=== PATIENT | female | born 1950 | race Two or more races ===

== ENCOUNTER 2024-05-17 08:54 | Outpatient (REF) | payer OTHER, SELFPAY ==
[2024-05-17 09:52] LABS: MANUAL DIFF FLAG NO
[2024-05-17 10:36] LABS: Basophils Percent Auto 0.9 % (0-2); Eosinophils Absolute Auto 0.1 X10*3/uL (0.0-0.4); Eosinophils Percent Auto 2.8 % (0-4); Hematocrit 42.8 % (37.0-47.0); Hemoglobin 14.3 g/dl (12.0-16.0); Imm Gran Abs Auto 0.01 X10*3/uL (0.00-0.03); Imm Gran Pct Auto 0.2 % (0.0-0.4); Lymphocytes Absolute Auto 1.1 X10*3/uL (1.2-4.9); Lymphocytes Percent Auto 24.5 % (20-40); Mean Corpuscular HGB Conc 33.4 g/dl (31.0-35.0); Mean Corpuscular Hemoglobin 30.6 pg (27.0-33.0); Mean Corpuscular Volume 91.5 fL (80.0-98.0); Monocytes Absolute Auto 0.4 X10*3/uL (0.1-1.2); Monocytes Percent Auto 9.6 % (2-11); Neutrophils Absolute Auto 2.8 x10*3/uL (2.0-8.3); Platelet Count 282 X10*3/uL (160-400); Red Blood Count 4.68 X10*6/uL (4.20-5.50); Red Cell Distribution Width 11.9 % (11.0-16.0); White Blood Count 4.6 X10*3/uL (4.8-10.8)
[2024-05-17 10:42] LABS: Estimated Average Glucose 123 mg/dL; Hemoglobin A1c % 5.9 % (<6.0)
[2024-05-17 11:07] LABS: Parathyroid Hormone Intact 56.1 pg/mL (8.7-77.1)
[2024-05-17 11:08] LABS: Cholesterol 250 mg/dL (<200); HDL Cholesterol 56 mg/dL (>40); LDL Cholesterol Calculated 159 mg/dL (<100); Triglycerides 176 mg/dL (<150)
[2024-05-17 11:25] LABS: TSH reflex Free T4 3.81 uIU/mL (0.32-4.0); Vitamin D 25-OH Total 34.4 ng/mL (>30)
[2024-05-17 11:36] LABS: Folate 14.3 ng/mL (> or = 4.0); Vitamin B12 536 pg/mL (200-900)
== END 2024-05-17 08:55 | disposition home or self-care (01) ==
LOC: HO.LAB 08:54
PROVIDERS: PCP Nurse Practitioner Family; Visit Provider Nurse Practitioner Family
DX: G62.9 Polyneuropathy, unspecified (principal); E78.2 Mixed hyperlipidemia; M81.0 Age-related osteoporosis without current pathological fracture; I10 Essential (primary) hypertension; R14.0 Abdominal distension (gaseous); Z13.1 Encounter for screening for diabetes mellitus
CPT/HCPCS: 36415; 80061; 82306; 82607; 82746; 83036; 83970; 84443; 85025; 87338

== ENCOUNTER 2024-05-20 15:31 | Outpatient (REF) | payer OTHER, SELFPAY ==
[2024-05-20 17:18] LABS: Alanine Aminotransferase 26 U/L (0-31); Albumin Level 4.3 g/dL (3.5-5.0); Alkaline Phosphatase 85 U/L (39-117); Anion Gap 11 (12-20); Aspartate Amino Transferase 24 U/L (5-31); Bilirubin Total 0.5 mg/dL (0.0-1.0); Blood Urea Nitrogen 12 mg/dL (9-16); Calcium 9.9 mg/dL (8.4-10.2); Carbon Dioxide 30 mmol/L (22-29); Chloride 104 mmol/L (96-108); Estimated Glomerular Filt Rate > 60; Glucose Random 74 mg/dL (60-115); Potassium 4.5 mmol/L (3.3-5.1); Sodium 140 mmol/L (135-145); Total Protein 7.6 g/dL (6.5-8.0)
[2024-05-23 10:48] LABS: TS Negative Control Passed; TS Panel A 0; TS Panel B 0; TS Positive Control Passed; TSpotTB Negative (Negative)
== END 2024-05-20 15:32 | disposition home or self-care (01) ==
LOC: HO.HHCL 15:31
PROVIDERS: Visit Provider Nurse Practitioner Family
DX: Z00.00 Encounter for general adult medical examination without abnormal findings (principal); E78.2 Mixed hyperlipidemia
CPT/HCPCS: 36415; 80053; 86481

== ENCOUNTER 2024-07-15 11:06 | Outpatient (AMB) | payer OTHER, SELFPAY ==
--- NOTE | 2024-07-15 11:08 | MHC.OFFVIS ---
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 Patient has bilateral VV. Bilateral cramping. Has burning and itching in the legs and feet. Accompanied by: Self / Same As Patient Allergies Unable to Assess Allergy (Unverified 07/15/24 11:12) HPI HPI CHIEF SOLUTION ARCHITECT/HHC referral for : Details: Mendy Andrade, a pleasant 74-year-old female, presenting today for ongoing bilateral leg pain, cramping, and slight swelling in her ankles. She does have a lengthy history of low back pain with sciatica and osteoporosis of bilateral hips. It has been affecting their daily activities including standing, walking, everyday activities. It is noted equally bilaterally. She is a former smoker and no diabetes. She quit smoking in 1995. 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 Patient denies any previous venous surgery or injections. Patient denies any history of DVT/ PE. Patient denies any history of phlebitis. Trial of compression includes - elevation They now present for vascular evaluation regarding their varicose veins. Physical Exam Extrem Other: Bilateral lower extremities: Slight swelling noted at the ankles. Strong and palpable DP pulses. Some spider veins scattered in the upper thigh areas. No tortuosity is noted. CEAP: C - 3 E - primary A- superficial P - reflux Assessment & Plan Assessment & Plan (1) Varicose veins of both lower extremities with inflammation: Code(s): I83.11 - Varicose veins of right lower extremity with inflammation; I83.12 - Varicose veins of left lower extremity with inflammation Category: Medical Plan: Mendy Andrade is presenting today as a referral for ongoing varicose vein complaints, including pain and swelling. In short, the patient has evidence of venous insufficiency. I have discussed the pathophysiology with the patient. In addition I have provided informational material regarding venous disease to the patient. We have discussed conservative measures including compression, elevation, and exercise. I have also provided a handout regarding appropriate use of compression stockings and where to purchase good compression stockings as well. I have taken the liberty of ordering venous insufficiency testing with the patient. They will follow up with me after testing. The patient had an opportunity to ask questions regarding the treatment plan. All questions were answered. Imaging studies, laboratory studies and physical exam results were discussed and reviewed in detail. No major barriers to understanding were identified. The patient expressed understanding and agreement with the above treatment plan. The patient is aware they should contact our office by phone for worsening of the current condition or the appearance of new symptoms. Thank you for allowing me to participate in the vascular care of this patient. If you have any questions or concerns regarding the treatment for the above condition please do not hesitate to contact me. The office telephone contact is [phone]. This note is constructed using voice recognition software. While every effort has been made to ensure accuracy, pasting inspector errors may have been included. Thank you for allowing me to participate in the care of your patient. Yours sincerely, SUSAN Urena Orders: Orders US venous duplex LE BI 1 Week I83.11 - Varicose veins of right lower extremity with inflammation, I83.12 - Varicose veins of left lower extremity with inflammation Coding Level of Care Code New Pt New Pt Level 4 (83427) Patient Type New Diagnoses Varicose veins of both lower extremities with inflammation I83.11; I83.12
== END 2024-07-15 11:31 | disposition home or self-care (01) ==
LOC: HO.HVS 11:07
PROVIDERS: PCP Nurse Practitioner Family; Visit Provider Physician Assistant Surgical
DX: I83.11 Varicose veins of right lower extremity with inflammation (principal); I83.12 Varicose veins of left lower extremity with inflammation
CPT/HCPCS: 99204

== ENCOUNTER → 2024-07-15 11:06 | Outpatient (BNVA) | payer OTHER, SELFPAY | PROVIDERS: PCP Nurse Practitioner Family; Visit Provider Physician Assistant Surgical | DX: I83.11 Varicose veins of right lower extremity with inflammation (principal); I83.12 Varicose veins of left lower extremity with inflammation; I83.813 Varicose veins of bilateral lower extremities with pain; Z87.891 Personal history of nicotine dependence | CPT/HCPCS: 99202 ==

== ENCOUNTER 2024-07-31 12:29 | Outpatient (REF) | payer OTHER, SELFPAY ==
--- NOTE | ~2024-07-31 | US_ITS ---
EXAMINATION: US LOWER EXTREMITY VENOUS (REFLUX EXAM), BILATERAL CLINICAL INDICATION: There) of the right lower extremity with inflammation COMPARISON: None. TECHNIQUE: Color flow triplex imaging and compression Doppler was performed to evaluate both the deep and the superficial systems bilaterally. To evaluate the superficial system, the examination was performed in the upright position. Color-flow Doppler ultrasound and compression ultrasound were utilized. In addition, maneuvers were utilized to demonstrate reflux. FINDINGS: 1. DEEP VENOUS ULTRASOUND OF THE RIGHT LOWER EXTREMITY: Common Femoral Vein: Compressible, normal respiratory variation and augmented flow. Femoral Vein: Compressible, normal color flow and augmentation. Popliteal Vein: Compressible, normal augmentation. Deep Reflux: There is no evidence of reflux in the deep system in either the common femoral vein, superficial femoral or the popliteal vein. There is no evidence of a So's cyst. 2. SUPERFICIAL ULTRASOUND WITH DOPPLER OF RIGHT LOWER EXTREMITY: GREAT SAPHENOUS VEIN: Saphenofemoral Junction: 0.5 cm; Reflux: 0 ms Proximal Thigh: 0.4 cm; Reflux: 0 ms Mid Thigh: 0.3 cm; Reflux: 0 ms Above Knee: 0.3 cm; Reflux: 0 ms At Knee: 0.3 cm; Reflux: 0 ms Below Knee: 0.2 cm; Reflux: 0 ms Mid Calf: 0.2 cm; Reflux: 0 ms Ankle: 0.2 cm; Reflux: 0 ms DUPLICATED MEDIAL GREAT SAPHENOUS VEIN: Saphenofemoral Junction: 0.3 cm; Reflux: 0 ms Mid Thigh: Not visualized DUPLICATED LATERAL GREAT SAPHENOUS VEIN: Saphenofemoral Junction: 0.3 cm; Reflux: 0 ms Mid Thigh: 0.2 cm; Reflux: 0 ms SMALL SAPHENOUS VEIN: Saphenopopliteal Junction: 0.4 cm; Reflux: 0 ms Proximal: 0.2 cm; Reflux: 0 ms Distal: 0.2 cm; Reflux: 0 ms PERFORATORS: Location: Mid thigh Size: 0.2; Reflux: 0 ms VARICOSITIES: Location: None imaged Size: NA; Reflux: 0 ms 3. DEEP VENOUS ULTRASOUND OF THE LEFT LOWER EXTREMITY: Common Femoral Vein: Compressible, normal respiratory variation and augmented flow. Femoral Vein: Compressible, normal color flow and augmentation. Popliteal Vein: Compressible, normal augmentation. Deep Reflux: There is no evidence of reflux in the deep system in either the common femoral vein, superficial femoral or the popliteal vein. There is no evidence of a So's cyst. 4. SUPERFICIAL ULTRASOUND WITH DOPPLER OF LEFT LOWER EXTREMITY: GREAT SAPHENOUS VEIN: Saphenofemoral Junction: 0.7 cm; Reflux: 0 ms Proximal Thigh: 0.3 cm; Reflux: 0 ms Mid Thigh: 0.4 cm; Reflux: 0 ms Above Knee: 0.3 cm; Reflux: 0 ms At Knee: 0.4 cm; Reflux: 0 ms Below Knee: 0.3 cm; Reflux: 0 ms Mid Calf: 0.2 cm; Reflux: 0 ms Ankle: 0.2 cm; Reflux: 0 ms DUPLICATED LATERAL GREAT SAPHENOUS VEIN: Saphenofemoral Junction: 0.4 cm; Reflux: 0 ms Mid Thigh: 0.2 cm; Reflux: 0 ms SMALL SAPHENOUS VEIN: Saphenopopliteal Junction: 0.3 cm; Reflux: 0 ms Proximal: 0.1 cm; Reflux: 0 ms Distal: 0.2 cm; Reflux: 0 ms PERFORATORS: Location: None imaged Size: NA; Reflux: 0 ms VARICOSITIES: Location: None Imaged Size: NA; Reflux: 0 ms US/US venous insuf bilat IMPRESSION: 1. No evidence of deep venous thrombosis or reflux in the bilateral lower extremities. 2. No evidence of superficial venous reflux in the bilateral lower extremities. Electronically signed by: Denae Prince MD 08/27/2024 04:45 PM DARYL
== END 2024-07-31 12:30 | disposition home or self-care (01) ==
LOC: HO.US 12:29
PROVIDERS: PCP Nurse Practitioner Family; Visit Provider Physician Assistant Surgical
DX: I83.11 Varicose veins of right lower extremity with inflammation (principal); I83.12 Varicose veins of left lower extremity with inflammation
CPT/HCPCS: 93970

== ENCOUNTER 2024-08-13 10:55 | Outpatient (REF) | payer OTHER, SELFPAY ==
--- NOTE | ~2024-08-13 | MM_ITS ---
EXAMINATION: MM SCREENING DIGITAL BREAST TOMOSYNTHESIS, BILATERAL CLINICAL INFORMATION: Screening. Asymptomatic. COMPARISON: Mammography: Baseline. TECHNIQUE: Digital breast mammography with tomosynthesis is performed in both the craniocaudal and mediolateral oblique views along with computer-aided detection (CAD). FINDINGS: The breasts are extremely dense, which lowers the sensitivity of mammography (ACR BI-RADS breast composition Category d). There are no significant masses, abnormal calcifications, or other abnormalities. MM/MM tomosynthesis screening BI IMPRESSION: No mammographic evidence of malignancy. ASSESSMENT: BI-RADS BI-RADS 1 - Negative RECOMMENDATION: Routine annual mammography screening. 1 year F/U This examination should not preclude the clinical evaluation of a suspicious palpable abnormality. This patient's information was entered into a reminder system with a target due date for their next mammogram. Electronically signed by: Марина Bradshaw DO 08/22/2024 09:40 AM DARYL
== END 2024-08-13 10:56 | disposition home or self-care (01) ==
LOC: HO.MAMMO 10:55
PROVIDERS: PCP Nurse Practitioner Family; Visit Provider Nurse Practitioner Family
DX: Z12.31 Encounter for screening mammogram for malignant neoplasm of breast (principal)
CPT/HCPCS: 77063; 77067

== ENCOUNTER → 2024-08-13 11:15 | Outpatient (BNV) | payer OTHER, SELFPAY | PROVIDERS: PCP Nurse Practitioner Family; Visit Provider Internal Medicine | DX: Z12.31 Encounter for screening mammogram for malignant neoplasm of breast (principal) | CPT/HCPCS: 77063; 77067 ==

== ENCOUNTER → 2024-08-19 10:52 | Outpatient (BNVA) | payer OTHER, SELFPAY | PROVIDERS: PCP Nurse Practitioner Family; Visit Provider Physician Assistant Surgical ==

== ENCOUNTER 2024-08-21 10:53 | Outpatient (AMB) | payer OTHER, SELFPAY ==
--- NOTE | 2024-08-21 11:00 | A.OFFVIS_ITS ---
Intake Visit Reasons: follow up US Intake Note: Patient presents for US follow up. Patient states she has pain in her left lower leg. Thinks it might be a pinched nerve or herniated disk? Has cramping in her feet as well. Accompanied by: Self / Same As Patient Allergies Unable to Assess Allergy (Verified 08/21/24 11:04) HPI HPI follow up US: Details: Mendy Andrade is presenting today for follow-up to her venous insufficiency ultrasound performed on 07/31/2024. She states she is having intermittent lower extremity pain/cramping continuing. She denies any new varicosities. She has no new concerns this morning. Review of Systems Const Reports as per HPI and Denies weakness ENT Reports Normal hearing present and Denies dizziness Card Reports as per HPI, Denies chest pain, Denies chest pain at rest, Denies chest pain with activity, Denies dyspnea and Denies dyspnea on exertion Resp Reports as per HPI, Denies cough, Denies dyspnea and Denies dyspnea on exertion GI Reports as per HPI, Denies abdominal pain, Denies nausea and Denies vomiting Musc Denies numbness Skin/Breast Reports as per HPI, Denies erythema and Denies wounds Neuro Reports Normal hearing present, Denies dizziness, Denies numbness, Denies Sensory deficit (Neuro) and Denies weakness Psych Reports no additional complaints Endo Reports no additional complaints Physical Exam Const General: healthy appearing and no acute distress Orientation/consciousness: patient oriented x3 HEENT Head: Yes normal to inspection Ears: hearing grossly normal bilaterally Mouth: Normal oral and palatal mucosa present Resp Effort & Inspection: normal respiratory effort and able to speak in complete sentences Auscultation: clear to auscultation bilaterally Cardio Jugular venous distension: no JVD Rate: regular rate Rhythm: regular rhythm Heart sounds: S1 normal heart sound present and S2 normal heart sound present Bruits: no abdominal aortic bruits, no carotid bruits, no femoral bruits and no renal bruits Peripheral pulses: Peripheral pulses 2+ throughout GI Inspection: Yes normal to inspection Palpation (GI): No Abdominal aortic bruit present Skin General skin exam: no rashes or lesions noted Wounds: no wounds Hair: normal Neuro General: patient oriented x3 Cranial nerves: Yes Normal hearing present Cognition (Neuro): normal cognition Gait exam (Neuro): Normal gait present Motor exam (neuro): 5/5 motor strength present throughout Sensory Exam: No Sensory deficit (Neuro) Extrem Other: Bilateral lower extremities: Slight swelling noted at the ankles. Strong and palpable DP pulses. Some spider veins scattered in the upper thigh areas. No tortuosity is noted. General: Yes normal to inspection, Yes full ROM, Yes capillary refill normal and Yes normal gait Results Reviewed Results Reviewed: Brief summary of venous insufficiency testing is as follows: right great saphenous vein: negative right small saphenous vein: negative right accessory vein: none present left great saphenous vein: negative left small saphenous vein: negative left accessory vein: none present Please note there is no evidence of any venous aneurysms or significant tortuosity Assessment & Plan Assessment & Plan (1) Varicose veins of both lower extremities with inflammation: Code(s): I83.11 - Varicose veins of right lower extremity with inflammation; I83.12 - Varicose veins of left lower extremity with inflammation Category: Medical Plan: Mendy Andrade is presenting today as a follow up to venous insufficiency ultrasound performed on 07/31/2024. She continues to do endorse intermittent lower extremity pain/cramping. There are no new tortuosities noted. The results of the ultrasound is negative for any venous insufficiency. We discussed to cont inue with compression stockings, elevation, and physical activity/walking. We discussed that if she has changing symptoms or if the pain is worsening, she can reach back out to us for further evaluation and treatment. We discussed the importance of controlling her blood pressure, well-balanced diet, and physical activity. If there are any questions or concerns, please do not hesitate to reach out to us. Coding Level of Care Code Est Pt Level 4 (98454) Diagnoses Varicose veins of both lower extremities with inflammation I83.11; I83.12 Comment Review of venous insufficiency ultrasound
== END 2024-08-21 11:15 | disposition home or self-care (01) ==
PROVIDERS: PCP Nurse Practitioner Family; Visit Provider Physician Assistant Surgical
DX: I83.11 Varicose veins of right lower extremity with inflammation (principal); I83.12 Varicose veins of left lower extremity with inflammation
CPT/HCPCS: 99214

== ENCOUNTER → 2024-08-21 10:53 | Outpatient (BNVA) | payer OTHER, SELFPAY | PROVIDERS: PCP Nurse Practitioner Family; Visit Provider Physician Assistant Surgical | DX: I83.11 Varicose veins of right lower extremity with inflammation (principal); I83.12 Varicose veins of left lower extremity with inflammation | CPT/HCPCS: 99212 ==

== ENCOUNTER 2024-09-01 14:29 | Outpatient (REF) | payer OTHER, SELFPAY ==
[2024-09-01 17:21] LABS: Alanine Aminotransferase 26 U/L (0-31); Albumin Level 4.3 g/dL (3.5-5.0); Alkaline Phosphatase 79 U/L (39-117); Anion Gap 11 (12-20); Aspartate Amino Transferase 25 U/L (5-31); Bilirubin Total 0.6 mg/dL (0.0-1.0); Blood Urea Nitrogen 17 mg/dL (9-16); Carbon Dioxide 25 mmol/L (22-29); Chloride 105 mmol/L (96-108); Estimated Glomerular Filt Rate 56; Glucose Random 137 mg/dL (60-115); Potassium 4.2 mmol/L (3.3-5.1); Sodium 137 mmol/L (135-145); Total Protein 7.7 g/dL (6.5-8.0)
[2024-09-01 17:26] LABS: TSH reflex Free T4 3.26 uIU/mL (0.32-4.0)
== END 2024-09-01 14:30 | disposition home or self-care (01) ==
LOC: HO.HHCL 14:29
PROVIDERS: Visit Provider Nurse Practitioner Family
DX: M81.0 Age-related osteoporosis without current pathological fracture (principal)
CPT/HCPCS: 36415; 80053; 84443

== ENCOUNTER → 2024-09-24 10:46 | Outpatient (REF) | payer OTHER, SELFPAY ==
--- NOTE | 2024-09-24 10:50 | CA_ITS ---
Transthoracic Echocardiogram Patient (Last, First, Middle): Mendy Gautam Celia Gender: Female Date of : 1950 Age: 74 Procedure Date: 09/24/2024 Procedure Type: Transthoracic Echocardiogram Location: OP Height: 152.4 cm Weight: 51. kg BSA: 1.46 m2 Heart Rate: bpm BP: 122 / 62 mmHg [employer]ipe [employer]ding: TO Referring MD: Aidee Mackay NP Symptoms: R01.1 MURMUR Study Quality: Adequate w contrast ECG Rhythm: Sinus Conclusions: - The left ventricular systolic function is low normal. The visually estimated ejection fraction is between 50-55%. - The inferoseptal wall and basal inferior segment are hypokinetic. - No obvious valvular pathology seen on this study. Findings Procedure Information Contrast agent, definity, is being given per protocol without apparent complications. Left Ventricle Normal left ventricular cavity size. There is normal left ventricular wall thickness. The left ventricular systolic function is low normal. The visually estimated ejection fraction is between 50-55%. Diastolic function is normal for age. Wall Motion Rest Echo Findings The inferoseptal wall and basal inferior segment are hypokinetic. Right Ventricle Normal right ventricular cavity size. There is low normal right ventricular systolic function. Atria Both atria are normal in size. Aortic Valve There is a normal trileaflet aortic valve. There is no aortic valve stenosis. There is no aortic valve regurgitation. Mitral Valve The mitral valve appears normal. There is trace mitral valve regurgitation. There is no mitral valve stenosis. Pulmonic Valve The pulmonic valve is likely normal. Tricuspid Valve There is trace tricuspid valve regurgitation. There is no evidence of pulmonary hypertension. Great Vessels The asc aorta is normal in size. Venous The inferior vena cava is normal in size and collapses greater than 50% with inspiration. Pericardium/Pleural There is a trivial pericardial effusion. Prior Study Comparison No prior study available for comparison. Recommendations, Care & Conclusions No obvious valvular pathology seen on this study. Measurements 2D Linear Measurements IVSd: 0.82 0.6-0.9/0.6-1.0 cm LVIDd: 4.12 3.9-5.3/4.2-5.9 cm LVIDd Index: 2.82 2.4-3.2/2.2-3.1 cm/m2 LVIDs: 2.86 2.0-3.6 cm LVPWd: 0.68 0.7-1.1 cm LA Diam: 2.90 2.7-3.8/3.0-4.0 cm LAIDs Index: 1.99 1.5-2.3 cm/m2 LV Mass: 111.97 67-162/88-224 g LV Mass Index: 76.69 43-95/49-115 g/m2 LVOT Diam: 1.70 3.0+(-)1.3 cm 2D Systolic Function EF 4C: 50.20 >55% EF 2C: 50.40 >55% EF BiP: 49.30 >55% Mitral Valve MV Pk E: 0.45 MV PK A: 0.64 MV Decel Time: 275.00 E/A: 0.70 E'Lateral: 7.18 E'Medial: 6.09 E/E' Med: 7.30 E/E' Lat: 6.20 PHT: 80.00 MVA PHT: 2.75 Decel [place]: 1.62 Aortic Valve AoV Pk Steve: 1.43 AoV Mn Steve: 0.99 AoV VTI: 0.31 AoV Pk Grad: 8.00 Aov Mn Grad: 4.00 MARVIN Cont.VTI: 1.37 LVOT LVOT Pk Steve: 0.88 LVOT Mn Steve: 0.61 LVOT VTI: 0.19 LVOT Pk Grad: 3.00 LVOT Mn Grad: 2.00 LVOT Diam: 1.70 LVOT Area: 2.27 Diastolic Function MV Pk E: 0.45 MV Pk A: 0.64 E/A: 0.70 E'Medial: 6.09 E/E' Med: 7.30 E' Laterial: 7.18 E/E' Lat: 6.20 Right Ventricle TAPSE (mm): 15.20 TVS' Steve: 10.80 Tricuspid Valve RA Press: 3.00 Great Vessels Aorta Sinus of Valsalva: 2.74 2.0-3.5 cm Ao Asc: 2.80 2.1-3.4 cm Updated in Other Vendor System with Status of Final Keron Sandoval MD electronically signed on 09/26/2024 3:51:30 PM with status of Final
== END ==
LOC: HO.CARD 10:46
PROVIDERS: PCP Nurse Practitioner Family; Visit Provider Nurse Practitioner Family
DX: R01.1 Cardiac murmur, unspecified (principal)
CPT/HCPCS: 93306; Q9957

== ENCOUNTER → 2024-09-24 10:50 | Outpatient (BNV) | payer OTHER, SELFPAY | PROVIDERS: PCP Nurse Practitioner Family; Visit Provider Internal Medicine | DX: R01.1 Cardiac murmur, unspecified (principal) | CPT/HCPCS: 93306 ==

== ENCOUNTER 2024-12-25 12:25 | Outpatient (REF) | payer OTHER, SELFPAY ==
--- NOTE | ~2024-12-25 | XR_ITS ---
CLINICAL HISTORY: bilateral shoulder pain, lifting mother 3 view left shoulder Comparison: None Findings: No fractures or dislocations. No significant arthritic change. No erosions. No radiopaque foreign body. IMPRESSION: 1. No acute findings This document has been electronically signed by: Cecilio Lackey MD on 12/26/2024 09:48:36
--- OUTSIDE RECORDS SUMMARY | 2024-12-25 14:55 | XMS_ITS | Encounter Summary ---
Author Organization [employer] Address [address] [place] [address] Care Team Providers Care Assistant Terminal Manager Name Role Phone Aidee Mackay NP Primary Care Provider [phone] Reason for Referral * Consultation (Urgent) - Closed Specialty Diagnoses / Procedures Referred By Contfahad t Referred To Contact Optometry Diagnoses Photophobia of both eyes Aidee Mackay NP [address] [place] [address] Phone: tel: fax: [facility] OPTOMETRY [address] [place] [address] Phone: tel: fax: Referral ID Status Reason Start Date Expiration Date V isits Requested Visits Authorized [id number] Closed Consult and Treat 08/22/2024 08/22/2025 1 1 Encounter Details Date Type Department Care Team (Late st Contact Info) Description 08/22/2024 Orders Only [facility] MEDICINE [address] [place] [address] Aidee Mackay NP [address] [place] [address] Age related osteoporosis, unspecified pathological fracture presence (Primary Dx); Photophobia of both eyes Social History Tobacco Use Types Packs/Day Years Used Date Smoking Tobacco: Never Smokeless Tobacco: Never Alcohol Use Standard Drinks/Week Comments Yes 0 (1 standard drink = 0.6 oz pur e alcohol) occionally Housing Stability Answer Date Recorded What is your housing situation today? I have wilber cordova 04/11/[address] you li ve. Do you have problems with any of the following? None of the above 04/11/2024 Food Insecurity Answer Date Recorded Within the past 12 months, y ou worried that your food would run out before you got money to buy more: Never True 04/11/2024 Within the past 12 months,th e food you bought just didn't last and you didn't have enough money to get more: Never True Transportation Answer Date Recorded In the past 12 months, has l ack of transportation kept you from medical appts, meetings, work or from getting things needed for daily living? No 04/11/2024 Utilities Answer Date Recorded In the past 12 months, has t he electric, gas, oil or water company threatened to shut off services in your home? No 04/11/2024 Depression Answer Date Recorded Patient Health Questionnaire-2 Score 5 04/21/2024 Internet Access Answer Date Recorded Internet Access Q1 No 05/16/2024 Internet Access Q2 Not on file 05/16/2024 Comments Unknown Sex and Gender Information Value Date Recorded Sex Assigned at Female 04/18/2024 8:46 AM EDT Legal Sex Female 2:16 PM EDT Gender Identity Female 04/18/2024 8:46 AM EDT Sexual Orientation Straight 04/18/2024 8: 46 AM EDT documented as of this encounter Plan of Treatment Upcoming Encounters Date Type Department Care Team (Late st Contact Info) Description 01/12/2025 11:15 AM EDT Office Visit [facility] MEDICINE [address] [place] [address] Aidee Mackay NP [address] [place] [address] Scheduled Referrals Name Type Priority Associated Diagnoses Orde r Schedule Referral to [facility] Eye Care Outpatient Referral Urgent Photophobia of both eyes Expected: 08/22/2024 (Approximate), Expires: 08/22/2025 documented as of this encounter Procedures Procedure Name Priority Date/Time Associated Diagnosis Comments TSH W/REFLEX TO FT4 Routine 09/01/2024 2 :31 PM EST Age related osteoporosis, unspecified pathological fracture presence COMPREHENSIVE METABOLIC PANEL Routine 09/01/2024 2:31 PM EST Age related osteoporosis, unspecified pathological fracture presence documented in this encounter Results * (ABNORMAL) Comprehensive Metabolic Panel (09/01/2024 2:31 PM EST) Sodium 137 135 - 145 mmol/L [facility] Potassium 4.2 3.3 - 5.1 mmol/L [facility] Chloride 105 96 - 108 mmol/L [facility] Carbon Dioxide 25 22 - 29 mmol/L [facility] Anion Gap 11(L) 12 - 20 [facility] Urea Nitrogen (BUN) 17(H) 9 - 16 mg/dL [facility] Creatinine, Serum 0.97 0.5 - 1.4 mg/dL [facility] Estimated Glomerular Filt Rate 56 [facility] Comment:Chronic Kidney Disea se: Estimated GFR < 60 mL/min/1.77t9Lcrymb Kidney Disease: Estimated GFR < 15 mL/min/1.73m2 Glucose 137(H) 60 - 115 mg/dL [facility] Calcium 9.0 8.4 - 10.2 mg/dL [facility] Bilirubin, Total 0.6 0.0 - 1.0 mg/dL [facility] Aspartate Amino Transferase 25 5 - 31 U/L [facility] Alanine Aminotransferase 26 0 - 31 U/L [facility] Total Protein 7.7 6.5 - 8.0 g/dL [facility] Albumin Level 4.3 3.5 - 5.0 g/dL [facility] Alkaline Phosphatase 79 39 - 117 U/L [facility] Blood Venous blood specimen / Unknown 09/01/2024 2:31 PM EST 09/01/2024 4:22 PM EST us Aidee Mackay NP LAB BLOOD ORDERABLES Final Resul t [facility] [address] [place] [address] [phone] * TSH W/Reflex to FT4 (09/01/2024 2:31 PM EST) TSH reflex Free T4 3.26 0.32 - 4.0 uIU/mL [facility] Blood Venous blood specimen / Unknown 09/01/2024 2:31 PM EST 09/01/2024 4:22 PM EST us Aidee Mackay NP LAB BLOOD ORDERABLES Final Resul t [facility] [address] [place] [address] [phone] documented in this encounter Visit Diagnoses Diagnosis Age related osteoporosis, unspecified pathological fracture presence- Primary Photophobia of both eyes Visual discomfort documented in this encounter Care Teams Assistant Terminal Manager Relationship Specialty Start Date End Date Aidee Mackay NP [address] [place] [id number] PCP - General Family Medicine 04/21/24 documented as of this encounter
--- OUTSIDE RECORDS SUMMARY | 2024-12-25 14:55 | XMS_ITS | Clinical Summary ---
Author Organization [employer] Address [address] [facility] [address] [place] [address] Care Team Providers Care Motorcycle Mechanic Name Role Phone Aidee Mackay NP Primary Care Provider [phone] Allergies Active Allergy Reactions Criticality Noted Date Comments Tramadol Other 11/13/2024 Medications sucralfate (Carafate) 1 g tablet Take 1 g by mouth before breakfast, before lunch, before evening meal, and at bedtime. Active rosuvastatin (Crestor) 40 MG tabletIndications :Mixed hyperlipidemia Take 1 tablet (40 mg) by mouth Once per day. 30 tablet 2 04/21/20 24 Active omeprazole OTC (PriLOSEC OTC) 20 MG EC tabletIndications :Bloating Take 1 tablet (20 mg) by mouth before breakfast. Do not crush, chew, or split. 30 tablet 2 04/21/20 24 Active triamcinolone (Kenalog) 0.1 % cream Apply topically if needed in the morning and at bedtime (pain and swelling). 30 g 05/26/20 24 Active cholecalciferol (Vitamin D-3) 25 MCG (1000 UT) capsule Take 1 capsule (25 mcg) by mouth Once per day. 90 capsule 3 08/22/20 24 2024 Active olopatadine (Pataday) 0.2 % ophthalmic solution Administer 1 drop into affected eye(s) Once per day. 2.5 mL 2 09/01/20 24 Active fluticasone (Flonase) 50 MCG/ACT nasal sprayIndications: Atopic dermatitis, unspecified type Administer 1 spray into each nostril Once per day. Shake gently. Before first use, prime pump. After use, clean tip and replace cap. 16 g 2 09/01/20 24 2024 Active Eye Itch Relief 0.035 % solutionIndicatio ns:Allergic conjunctivitis of both eyes INSTILL 1 DROP INTO THE AFFECTED EYE(S) TWICE DAILY 10 mL 1 11/26/19 25 Active losartan (Cozaar) 50 MG tabletIndications :Hypertension, unspecified type TAKE 1 TABLET BY MOUTH EVERY DAY 30 tablet 2 12/02/19 25 Active losartan (Cozaar) 50 MG tabletIndications :Hypertension, unspecified type Take 1 tablet (50 mg) by mouth Once per day. 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 mother Constipation 11/07/2024 Atopic dermatitis 09/01/2024 Eczema 05/26/2024 Assessment & Plan (06/14/2024 6:01 PM EDT): Eruption consistent with atopic dermatitis topical steroid prescribed Moderate mixed hyperlipidemia not requiring stat in therapy 05/26/2024 Anxiety 04/21/2024 Assessment & Plan (04/21/2024 10:38 AM EDT): Supported through therapy currently Hypertension 04/21/2024 Assessment & Plan (12/11/2024 2:38 PM EDT): Above goal today, Usually at goal, monitor , no changes today Assessment & Plan (09/18/2024 2:09 PM EST): Above goal Increase to losartan 50 mg, Assessment & Plan (06/14/2024 6:02 PM EDT): At goal, continue losartan 25 mg Labs ordered Assessment & Plan (04/21/2024 10:37 AM EDT): Above goal today, monitor , follow up in 4 weeks Mixed hyperlipidemia 04/21/2024 Assessment & Plan (04/21/2024 10:37 AM EDT): Labs ordered today Asthma 04/21/2024 Overview (04/21/2024): Hx of hospitalization for asthma exacberations Assessment & Plan (04/21/2024 10:36 AM EDT): Hx of severe asthma, uri is trigger, currently asmyptomatic Major depressive disorder in partial remission 0 04/21/2024 Overview (04/21/2024): Hx of seeing psyhciatrits Thyroid disease 04/21/2024 Overview (04/21/2024): Hx of hyperthyroidism Assessment & Plan (04/21/2024 10:37 AM EDT): Hx of hyperthyroid, will check labs today Vertigo 04/21/2024 Osteoporosis 04/21/2024 Overview (04/21/2024): Hip and knee Venous insufficiency of both lower extremities 0 04/21/2024 Assessment & Plan (06/14/2024 6:01 PM EDT): Referral to vascular Murmur 04/21/2024 Assessment & Plan (12/11/2024 2:37 PM EDT): Echo reassuring, Assessment & Plan (04/21/2024 10:37 AM EDT): Systolic murmur, no symptoms, will get outside records Health maintenance alteration 04/21/2024 Assessment & Plan (04/21/2024 10:39 AM EDT): Mammogram ordered, ifobt neg, reviewed, No hx of abnormal pap Bulging lumbar disc 04/21/2024 Neuropathy 04/21/2024 Assessment & Plan (04/21/2024 10:36 AM EDT): Chronic, labs as ordered below Stress incontinence of urine 04/21/2024 Bloating 04/21/2024 Assessment & Plan (04/21/2024 10:39 AM EDT): Hx of h pylori, daily bloating/acid symptoms, repeat testing Follow up in 4 weeks Encounter for screening mamm ogram for malignant neoplasm of breast 04/21/2024 Resolved Problems Problem Noted Date Diagnosed Date Resolved Date Allergic conjunctivitis of both eyes 04/21/2024 11/13/2024 Assessment & Plan (09/18/2024 2:09 PM EST): Trial topical drops, pt report OTC drops ineffective Referral to eye care Encounters Date Type Department Care Team Description 11/30/2024 Refill [facility] [address] [place] [address] Aidee Mackay, ESHA Hypertension, unspecified type 11/25/2024 Refill [facility] [address] [place] [address] Aidee Mackay, ESHA Allergic conjunctivitis of both eyes 11/24/2024 Telephone [facility] [address] [place] [address] Bharati Mendoza RN 11/13/2024 11:15 AM EST Office Visit [facility] [address] [place] [address] Magali Spencer, OD Dry eye syndrome of both eyes (Primary Dx); Combined forms of age-related cataract of both eyes; Open angle with borderline findings, low risk, bilateral; Presbyopia 11/13/2024 Travel 11/07/2024 11:30 AM EST Office Visit [facility] [address] [place] [address] Aidee Mackay NP Stress (Primary Dx); Moderate asthma, unspecified whether complicated, unspecified whether persistent; Vision loss, left eye; Shoulder pain, unspecified chronicity, unspecified laterality; Murmur; Dry eye syndrome of both eyes; Hypertension, unspecified type 11/07/2024 Orders Only [address] [address] Aidee Mackay NP Constipation, unspecified constipation type (Primary Dx) 11/07/2024 Travel 10/29/[address] [address] Michelle Herrera [place] Chart Prep 10/10/[address] [address] Aidee Mackay NP Med Refill (Patient requesting med refills for Omeprazole and Losartan ) from Last 3 Months Family History Medical History Relation Name Comments Alzheimer's disease Mother Relation Name Status Comments Mother Social History Tobacco Use Types Packs/Day Years Used Date Smoking Tobacco: Never Smokeless Tobacco: Never Tobacco Cessation:Counseling Given: Not Answered Alcohol Use Standard Drinks/Week Comments Yes 0 (1 standard drink = 0.6 oz pur e alcohol) occionally Housing Stability Answer Date Recorded What is your housing situation today? I have wilberyuliana cordova 04/11/[address] you [...] the past 12 months, has t he [employer], [email or web address], oil or water company threatened to shut [...] Orientation Straight 04/18/2024 8: 46 AM EDT Last Filed Vital Signs Vital Sign Reading Time Taken Comments Blood Pressure 155/69 11/07/2024 11:42 AM EST Pulse 77 11/07/2024 11:42 AM EST Temperature 36.4 ??C (97.5 ??F) 11/07/2024 11:[address] Respiratory Rate 16 11/07/2024 11:42 AM EST Oxygen Saturation 98% 11/07/2024 11:42 AM EST Inhaled Oxygen Concentration - - Weight 52.4 kg (115 lb 9.6 oz) 11/07/2024 11:42 AM EST Height 152.4 cm (5') 11/07/2024 11:42 AM EST Body Mass Index 22.58 11/07/2024 11:42 AM EST Plan of Treatment Upcoming Encounters Date Type Department Care Team (Late st Contact Info) Description 01/12/2025 11:15 AM EDT Office Visit [facility] [address] [place] [address] Aidee Mackay NP [address] [place] [address] Health Maintenance Due Date Last Done Comments CT Colonography 1950 Colonoscopy 1950 Colorectal Cancer Screening 1950 FIT DNA/Cologuard 1950 FIT 1950 FOBT 1950 Sigmoidoscopy 1950 Hepatitis C Screening 1970 DTaP/Tdap/Td Vaccines (1 - Tdap) 1971 Pneumococcal Vaccine: 50+ Years (1 of 2 - PCV) 1971 Zoster Vaccines (1 of 2) 2002 RSV Patients and Patients Aged 60 years or older (1 - Risk 60-74 years 1-dose series) 2012 COVID-19 Vaccine (1 - 2023-2 5 season) 2024 Influenza Vaccine (#1) 2024 SDOH Screening 04/11/2025 04/11/2024 Depression Screening 04/21/2025 04/21/2024, 04/21/2024 Diabetes: Hemoglobin A1C 05/17/2025 05/17/2024 Alcohol/Substance Use Screening 09/01/2025 09/01/2024 Tobacco Screening 11/13/2025 11/13/2024 Mammogram 08/13/2026 08/13/2024 Lipid Panel 05/17/2029 05/17/2024 HIB Vaccines Aged Out No longer eligi ble based on patient's age to complete this topic HPV Vaccines Aged Out No longer eligi ble based on patient's age to complete this topic Hepatitis A Vaccines Aged Out No long er eligible based on patient's age to complete this topic Hepatitis B Vaccines Aged Out No long er eligible based on patient's age to complete this topic IPV Vaccines Aged Out No longer eligi ble based on patient's age to complete this topic Meningococcal Vaccine Aged Out No giacomo macy eligible based on patient's age to complete this topic RSV under 20 months Aged Out No longe r eligible based on patient's age to complete this topic Rotavirus Vaccines Aged Out No longer eligible based on patient's age to complete this topic Procedures Procedure Name Priority Date/Time Associated Diagnosis Comments OCT, OPTIC NERVE - OU - BOTH EYES Routine 11/13/2024 1:30 PM EST Open angle with borderline findings, low risk, bilateral BI MAMMOGRAM SCREENING TOMOSYNTHESIS BILATERAL Routine 08/13/2024 11:25 AM EST Encounter for screening mammogram for malignant neoplasm of breast HEMOGLOBIN A1C Routine 05/17/2024 9:43 AM EDT Hypertension, unspecified type LIPID PANEL, STANDARD Routine 05/17/2024 9:43 AM EDT Mixed hyperlipidemia from Last 3 Months or Most Recently Relevant to Health Maintenance Results * BI Mammogram Screening Tomosynthesis Bilateral (08/13/2024 11:25 AM EST) Anatomical Region Laterality Modality Breast Bilateral Mammography 08/13/2024 11:2 5 AM EST Narrative 08/22/2024 9:43 AM EST ? [facility] ? [address] ?[place] [address] ? Mammography Report ? Signed ? Patient: Spencer Alex,Mendy Lupe ?MR#: [id number] ?? [id number] ? : 1950 ?Acct:[id number] ? Age/Sex: 74 / F ?ADM Date: 08/13/24 ? Loc: HO.MAMMO ? Attending Dr: Aidee Mackay SHELLFISH MEAT SEPARATOR OPERATOR ? Ordering Physician: Aidee Mackay SHELLFISH MEAT SEPARATOR OPERATOR ?Results: 1Negati ?? ve ? Date of Service: 08/13/24 ?Follow Up: 1 Year From Orig ?? inal Mammogram ? Procedure(s): MM tomosynthesis screening BI ?? Accession Number(s): [id number] ? cc: Codie,Aidee Geremias SHELLFISH MEAT SEPARATOR OPERATOR ? EXAMINATION: ?? MM SCREENING DIGITAL BREAST TOMOSYNTHESIS, BILATERAL ? CLINICAL INFORMATION: ? Screening. Asymptomatic. ? COMPARISON: ?? Mammography: Baseline. ? TECHNIQUE: ?? Digital breast mammography with tomosynthesis is performed in both the ?? craniocaudal and mediolateral oblique views along with computer-aided ?? detection (CAD). ? FINDINGS: ?? The breasts are extremely dense, which lowers the sensitivity of ?? mammography (ACR BI-RADS breast composition Category d). ? There are no significant masses, abnormal calcifications, or other ?? abnormalities. ? MM/MM tomosynthesis screening BI ?? IMPRESSION: ?? No mammographic evidence of malignancy. ? ASSESSMENT: ? BI-RADS BI-RADS 1 - Negative ? RECOMMENDATION: ?? Routine annual mammography screening. ? 1 year F/U ? This examination should not preclude the clinical evaluation of a ?? suspicious palpable abnormality. ? This patient's information was entered into a reminder system with a ?? target due date for their next mammogram. ? Electronically signed by: ??Марина Bradshaw DO ??08/22/2024 09:40 AM EST ? Dictated By: ?Марина Bradshaw DO ? Signed By: ?<Electronically signed by Марина Bradshaw, DO in OV> ? 08/22/24 0940 ? DD/ 1125 ? TD/TT: 08/13/24 1140 ? Wire Wrapper Machine Operator: ? Procedure Note Juan Miguel, Image - 08/22/2024 [facility] [address] [place] [address] Mammography Report Signed Patient: Mendy GautamMR#: [id number] : 2Acct:[id number] Age/Sex: 74 / FADM Date: 08/13/24 Loc: HO.MAMMO Attending Dr: Aidee Mackay SHELLFISH MEAT SEPARATOR OPERATOR Ordering Physician: Aidee Mackay NPResults: 1Negati ve Date of Service: 08/13/24Follow Up: 1 Year From Orig inal Mammogram Procedure(s): MM tomosynthesis screening BI Accession Number(s): [id number] cc: Aidee Mackay SHELLFISH MEAT SEPARATOR OPERATOR EXAMINATION: MM SCREENING DIGITAL BREAST TOMOSYNTHESIS, BILATERAL CLINICAL INFORMATION: Screening. Asymptomatic. COMPARISON: Mammography: Baseline. TECHNIQUE: Digital breast mammography with tomosynthesis is performed in both the craniocaudal and mediolateral oblique views along with computer-aided detection (CAD). FINDINGS: The breasts are extremely dense, which lowers the sensitivity of mammography (ACR BI-RADS breast composition Category d). There are no significant masses, abnormal calcifications, or other abnormalities. MM/MM tomosynthesis screening BI IMPRESSION: No mammographic evidence of malignancy. ASSESSMENT: BI-RADS BI-RADS 1 - Negative RECOMMENDATION: Routine annual mammography screening. 1 year F/U This examination should not preclude the clinical evaluation of a suspicious palpable abnormality. This patient's information was entered into a reminder system with a target due date for their next mammogram. Electronically signed by: Марина Bradshaw DO 08/22/2024 09:40 AM EST Dictated By: Марина Bradshaw DO Signed By: <Electronically signed by Марина Bradshaw DO in OV> 08/22/24 0940 DD/ 1125 TD/TT: 08/13/24 1140 Wire Wrapper Machine Operator: us Aidee Mackay NP IMG BI PROCEDURES Edited Result - Final * Hemoglobin A1c (05/17/2024 9:43 AM EDT) Hemoglobin A1c 5.9 <6.0 % [facility] Comment:Hemoglobin A1C Refer ence Range Adults: 4.8 - 6.0 % Non diabetic: < 6.0 % Goal: < 7.0 %Additional Action Suggested: > 8.0 %Note: Hemoglobin A1c results are invalid for patients with abnormal amounts of HbF. Blood transfusions may impact the HbA1c concentration in the patient sample. Estimated Average Glucose 123 mg/dL [facility] Comment:eAG = Estimated ave rage glucose which is %A1C expressed asaverage glucose, using the formula of the [id number] Glucose study (ADAG), Diabetes Care, Vol.31,#8,Apr. 2007 Blood Venous blood specimen / Unknown 05/17/2024 9:43 AM EDT 05/17/2024 9:49 AM EDT us Aidee Mackay NP LAB BLOOD ORDERABLES Final Resul t [facility] [address] [place] [address] [phone] * (ABNORMAL) Lipid Panel, Standard (05/17/2024 9:43 AM EDT) Triglycerides 176(H) <150 mg/dL [facility] Comment:Desirable Triglyceri de: less than 150 mg/dLBorderline High Triglyceride 150-199 mg/dLHigh Triglyceride: 200-499 mg/dLVery High Triglyceride: greater than or equal to 5OO mg/dL Cholesterol 250(H) <200 mg/dL [facility] Comment:Desirable Cholestero l: less than 200 mg/dLBorderline High Cholesterol: 200-239 mg/dLHigh Cholesterol: greater than 239 mg/dL LDL Cholesterol Calculated 159(H) <100 mg/dL [facility] Comment:Desirable LDL: less than 100 mg/dLNear Optimal/Above Optimal LDL: 110- 129 mg/dLBorderline High LDL: 130-159 mg/dLHigh LDL: 160-189 mg/dLVery High LDL: greater than or equal to 190 mg/dL HDL Cholesterol 56 >40 mg/dL [facility] Comment:Desirable HDL: great er than 40 mg/dL Note: This HDL assay may give artificially low results in patients with liver disease. Blood Venous blood specimen / Unknown 05/17/2024 9:43 AM EDT 05/17/2024 9:49 AM EDT us Aidee Mackay SHELLFISH MEAT SEPARATOR OPERATOR LAB BLOOD ORDERABLES Final Resul t [facility] [address] [place] [address] [phone] from Last 3 Months or Most Recently Relevant to Health Maintenance Insurance [facility] STANDARD [facility] Care Teams Motorcycle Mechanic Relationship Specialty Start Date End Date Aidee Mackay NP [address] [place] [phone] PCP - General Family Medicine 04/21/24
--- OUTSIDE RECORDS SUMMARY | 2024-12-25 14:55 | XMS_ITS | Encounter Summary ---
Author Organization [employer] Address [address] [facility] [address] [place] [address] Care Team Providers Care Fire And Explosion Investigator Name Role Phone Aidee Mackay NP Primary Care Provider [phone] Reason for Visit * Reason Onset Date Comments Lab Orders 05/16/2024 Encounter Details Date Type Department Care Team ([facility] st Contact Info) Description 05/16/2024 Telephone [facility] [address] [place], [place] [phone] Aidee Mackay NP [address] [place], [place] [phone] Lab Orders Social History Tobacco Use Types Packs/Day Years [...] the past 12 months, has t he [employer], [employer], oil or water [employer] threatened to shut off services in your [...] AM EDT documented as of this encounter Miscellaneous Notes * Telephone Encounter - James Penny RN - 05/20/2024 8:55 AM EDT T/C to pt. For below order, pt. Was informed that TB blood test order is placed into system. Pt. Can go at any time pt. Verbally agreed and understood. * Telephone Encounter - Ac Moyer - 05/16/2024 4:34 PM EDT TC from pt stating needing tb order placed. documented in this encounter Plan of Treatment Upcoming Encounters Date Type Department Care Team (Late st Contact Info) Description 01/12/2025 11:15 AM EDT Office Visit [facility] [address] [place] [address] Aidee Mackay NP [address] [place] [address] documented as of this encounter Visit Diagnoses Not on filedocumented in this encounter Care Teams Fire And Explosion Investigator Relationship Specialty Start Date End Date Aidee Mackay NP [address] [place] [address] PCP - General Family Medicine 04/21/24 documented as of this encounter
== END 2024-12-25 12:26 | disposition home or self-care (01) ==
LOC: HO.XRAY 12:25
PROVIDERS: PCP Nurse Practitioner Family; Visit Provider Nurse Practitioner Family
DX: M25.512 Pain in left shoulder (principal)
CPT/HCPCS: 73030

== ENCOUNTER → 2024-12-25 12:30 | Outpatient (BNV) | payer OTHER, SELFPAY | PROVIDERS: PCP Nurse Practitioner Family; Visit Provider Radiology Diagnostic Radiology | DX: M25.512 Pain in left shoulder (principal) | CPT/HCPCS: 73030 ==

== ENCOUNTER 2025-04-15 11:00 | Outpatient (RCR) | payer OTHER, SELFPAY | END 2025-05-27 10:13 | disposition home or self-care (01) | LOC: HO.PT 11:00 | PROVIDERS: PCP Nurse Practitioner Family; Visit Provider Nurse Practitioner Family | DX: M51.361 Other intervertebral disc degeneration, lumbar region with lower extremity pain only; M25.512 Pain in left shoulder | CPT/HCPCS: 97110; 97112; 97140; 97162 ==

== ENCOUNTER 2025-06-05 16:09 | Outpatient (REF) | payer OTHER, SELFPAY ==
--- OUTSIDE RECORDS SUMMARY | 2025-06-05 11:30 | XMS_ITS | Encounter Summary ---
Author Organization [facility] [facility] Address [address] [place] [address] [address], [place] [address] Care Team Providers Care Urology Teacher Name Role Phone Aidee Mackay NP Primary Care Provider [phone] Reason for Referral * Consultation (Routine) - Pending Review Specialty Diagnoses / Procedures Referred By Mila gallego Referred To Contact Gastroenterology Diagnoses Psychogenic fecal incontinence Aidee Mackay NP [address] [place] [address] Phone: tel: fax: Referral ID Status Reason Start Date Expiration Date Visits Requested Visits Authorized [id number] Pending Review Specialty Services Required 06/05/2025 06/05/2026 1 1 Reason for Visit * Reason Comments Follow-up Encounter Details Date Type Department Care Team ([facility] st Contact Info) Description 06/05/2025 11:30 AM EDT Office Visit [facility] [address] [place], [place] [phone] Aidee Mackay NP [address] [place] [address] Hypertension, unspecified type (Primary Dx); Dysuria; Psychogenic fecal incontinence; Pelvic pain Social History Tobacco Use Types Packs/Day Years Used Date Smoking Tobacco: Never Smokeless Tobacco: Never Tobacco Cessation:Counseling Given: Not Answered Alcohol Use Standard Drinks/Week Comments Yes 0 (1 standard drink = 0.6 oz pur e alcohol) occionally Depression Answer Date Recorded Patient Health Questionnaire-9 Score 8 06/05/2025 Patient Health Questionnaire-9 Score 8 06/05/2025 Last PHQ-9: Questionnaire Data Not on file 0 06/05/2025 Housing Stability Answer Date Recorded What is your housing situation today? I have wilber cordova 06/05/[address] you li ve. Do you have problems with any of the following? None of the above 06/05/2025 Food Insecurity Answer Date Recorded Within the past 12 months, y ou worried that your food would run out before you got money to buy more: Never True 06/05/2025 Within the past 12 months,th e food you bought just didn't last and you didn't have enough money to get more: Never True Transportation Answer Date Recorded In the past 12 months, has l ack of transportation kept you from medical appts, meetings, work or from getting things needed for daily living? No 06/05/2025 Utilities Answer Date Recorded In the past 12 months, has t he electric, gas, oil or water company threatened to shut off services in your home? No 06/05/2025 Depression Answer Date Recorded Patient Health Questionnaire-2 Score 3 06/05/2025 Internet Access Answer Date Recorded Internet Access Q1 No 06/05/2025 Internet Access Q2 I do not want or need it 05/18 Comments Unknown Sex and Gender Information Value Date Recorded Sex Assigned at Female 04/18/2024 8:46 AM EDT Legal Sex Female 2:16 PM EDT Gender Identity Female 04/18/2024 8:46 AM EDT Sexual Orientation Straight 04/18/2024 8: 46 AM EDT documented as of this encounter Last Filed Vital Signs Vital Sign Reading Time Taken Comments Blood Pressure 139/72 06/05/2025 11:39 AM EDT Pulse 77 06/05/2025 11:39 AM EDT Temperature 36.9 C (98.5 F) 06/05/2025 11:39 AM EDT Respiratory Rate 15 06/05/2025 11:39 AM EDT Oxygen Saturation 95% 06/05/2025 11:39 AM EDT Inhaled Oxygen Concentration - - Weight 54.6 kg (120 lb 6.4 oz) 06/05/2025 11:39 AM EDT Height 152.4 cm (5') 06/05/2025 11:39 AM EDT Body Mass Index 23.51 06/05/2025 11:39 AM EDT documented in this encounter Functional Status * Over the past 2 weeks, how often have you been bothered by any of the following problems? Question Answer Date of Assessment Author Patient Health Questionnaire -2 Score 3 06/05/2025 11:51 AM EDT Cathy Pop MA * Little interest or pleasure in doing things Answer Date of Assessment Author Several days 06/05/2025 11:51 AM FERNANDAT Cathy Pop MA * Feeling down, depressed, or hopeless Answer Date of Assessment Author More than half the days 06/05/2025 11:51 AM Cathy Butts MA * Trouble falling or staying asleep, or sleeping too much Answer Date of Assessment Author Not at all 06/05/2025 11:51 AM Cathy Butts MA * Feeling tired or having little energy Answer Date of Assessment Author Nearly every day 06/05/2025 11:51 AM Cathy Butts MA * Poor appetite or overeating Answer Date of Assessment Author Several days 06/05/2025 11:51 AM Cathy Butts MA * Feeling bad about yourself - or that you are a failure or have let yourself or your family down Answer Date of Assessment Author Several days 06/05/2025 11:51 AM Cathy Butts MA * Trouble concentrating on things, such as reading the newspaper or watching television Answer Date of Assessment Author Not at all 06/05/2025 11:51 AM Cathy Butts MA * Moving or speaking so slowly that other people could have noticed? Or the opposite - being so fidgety or restless that you have been moving around a lot more than usual. Answer Date of Assessment Author Not at all 06/05/2025 11:51 AM Cathy Butts MA * Thoughts that you would be better off or hurting yourself in some way Answer Date of Assessment Author Not at all 06/05/2025 11:51 AM Cathy Butts MA * Patient Health Questionnaire-9 Score Answer Date of Assessment Author 8 06/05/2025 11:51 AM EDT Cathy Pop MA * How difficult have these problems made it for you to do your work, take care of things at home, or get along with other people? Answer Date of Assessment Author Somewhat difficult 06/05/2025 11:51 AM FERNANDAT Cathy Bolivar MA * Over the last 2 weeks, how often have you been bothered by any of the following problems? Question Answer Date of Assessment Author Feeling nervous, anxious, or on edge 3 06/05/2025 11:52 AM EDT Cathy Pop MA Not being able to stop or co ntrol worrying 3 06/05/2025 11:52 AM Cathy Butts MA Worrying too much about diff erent things 3 06/05/2025 11:52 AM Cathy Butts MA Trouble relaxing 3 06/05/2025 11:52 AM EDCathy Fuentes MA Being so restless that it is hard to sit still 3 06/05/2025 11:52 AM Cathy Butts MA Becoming easily annoyed or irritable 3 06/05/2025 11:52 AM Cathy Butts MA Feeling afraid as if somethi ng awful might happen 3 06/05/2025 11:52 AM Cathy Butts MA JOVANNY-7 Total Score 21 06/05/2025 11:52 AM Cathy Butts MA documented as of this encounter Progress Notes * Aidee Mackay NP - 06/05/2025 11:30 AM EDT Mendy Alex is a 74 y.o. female who presents to the office for Chief Complaint Patient presents with Follow-up Htn Fecal urge incontience Problem List[1] Medical History[2] Allergies[3] Mendy Alex, age 74, female - Pain and discomfort in pelvic area, concerned about possible urinary infection - Onset of symptoms at the beginning of April 2025 - Reports cramping similar to premenstrual cramps, no sensation of fullness - Occasional sudden urge to urinate with watery leakage - Recent episode of discomfort during urination - Denies vaginal discharge and vaginal bleeding - No burning with urination - Reports episodes of liquid stool occurring a few times over the past couple of weeks - History of using tap water in a bottle for vaginal washing, concerned about possible introductionof bacteria - No change in bowel habits, denies constipation - Reports positive depression screen, but states mood improved after sister visited 2-3 weeks ago - No side effects from current medication for blood pressure Review of Systems Constitutional: Negative for activity change and appetite change. Respiratory: Negative for apnea and chest tightness. Gastrointestinal: Positive for diarrhea. Genitourinary: Positive for frequency and pelvic pain. Negative for hematuria and menstrual problem. BP 139/72 (BP Location: Left arm, Patient Position: Sitting, BP Cuff Size: Adult) Pulse 77 Temp98.5 ??F (36.9 ??C) (Oral) Resp 15 Ht 5' (1.524 m) Wt 120 lb 6.4 oz (54.6 kg) SpO2 95% BMI 23.51 kg/m?? Physical Exam Vitals reviewed. Exam conducted with a emergency management coordinator present. HENT: Head: Normocephalic and atraumatic. Nose: Nose normal. Eyes: Conjunctiva/sclera: Conjunctivae normal. Cardiovascular: Rate and Rhythm: Normal rate and regular rhythm. Pulmonary: Effort: Pulmonary effort is normal. Breath sounds: Normal breath sounds. Genitourinary: General: Normal vulva. Labia: Right: Tenderness present. No rash. Left: Tenderness present. No rash. Musculoskeletal: Cervical back: Normal range of motion and neck supple. Neurological: General: No focal deficit present. Mental Status: She is alert. - CARDIOVASCULAR: Blood pressure recorded at 107/46 mmHg. - GENITOURINARY: Transvaginal ultrasound performed; endometrium appears normal with mild endometrial thickening. Results: No visits with results within 28 Day(s) from this visit. Latest known visit with results is: Office Visit on 04/20/2025 Component Date Value Ref Range Status Color, UA 04/20/2025 Yellow Final Clarity, UA 04/20/2025 Clear Final Glucose, UA 04/20/2025 Negative Final Bilirubin, UA 04/20/2025 Negative Final Ketones, UA 04/20/2025 Negative Final Spec Grav, UA 04/20/2025 1.015 Final Blood, UA 04/20/2025 Positive (A) Negative, None Detected Final trace-lysed pH, UA 04/20/2025 7.0 Final Protein, UA 04/20/2025 Negative Final Urobilinogen, UA 04/20/2025 0.2 Final Leukocytes, UA 04/20/2025 Negative Negative, Rare, Trace Final Nitrite, UA 04/20/2025 Negative Negative, None Detected Final Appearance, UA 04/20/2025 yellow clear Final QC Media Lot # 04/20/2025 [id number] Final Lot# Expiration Date 04/20/2025 53,126 Final Assessment & Plan Hypertension, unspecified type Dysuria Orders: Culture, Urine, Routine; Future Psychogenic fecal incontinence Orders: Referral to Gastroenterology; Future Pelvic pain Orders: Bacterial Vaginosis Panel Assessment & Plan Hypertension, unspecified type: - Blood pressure readings remain elevated despite current antihypertensive regimen. - Increase antihypertensive medication dosage from 25 mg to 50 mg. - Risks and side effects: Discussed risk of dizziness with increased dosage. Dysuria: - Ongoing dysuria with concern for possible urinary tract infection. - Ordered urine culture to evaluate for infection. Psychogenic fecal incontinence: - Fecal incontinence episodes possibly related to dietary habits and coffee intake; consideration of psychogenic factors. - Referred to commercial litigation associate for further evaluation. Recommended to eat with coffee and reduce coffee intake. Pelvic pain: - Pelvic pain with prior normal transvaginal ultrasound and endometrial findings; etiology unclear. - Performed vaginal swab to assess for bacterial overgrowth or infection. Offered option for self-swab or provider collection; patient consented to provider collection. - Risks and side effects: Explained potential discomfort with vaginal swab; patient consented to procedure. Prescription - Increased current medication from 25 mg to 50 mg daily Appointments - Referral to commercial litigation associate for evaluation Current Medications[4] Based on our discussion, I have outlined the following instructions for you: - Increase your blood pressure medication from 25 mg to 50 mg. Be aware that this may cause dizziness. - A urine test has been ordered to check for a possible infection. - Try to eat food when you drink coffee, and cut down on how much coffee you have. - A vaginal swab was done by the provider to check for infection, and you agreed to the procedure after learning it might cause some discomfort. Next appointment(s): - Referral to commercial litigation associate for evaluation Thank you again for your visit, and we look forward to supporting you in your journey to better health. This note was drafted using Ambient (AI) technology. The patient/patient's guardian has been informed and has consented to the use of this technology: Yes [1] Patient Active Problem List Diagnosis Anxiety Hypertension Mixed hyperlipidemia Asthma Major depressive disorder in partial remission (CMS/HCC) Thyroid disease Vertigo Osteoporosis Venous insufficiency of both lower extremities Murmur Health maintenance alteration Bulging lumbar disc Neuropathy Stress incontinence of urine Bloating Encounter for screening mammogram for malignant neoplasm of breast Eczema Moderate mixed hyperlipidemia not requiring statin therapy Atopic dermatitis Stress Constipation Dry eye syndrome of both eyes Vision loss, left eye Shoulder pain Left arm pain Left leg pain Foot pain, left Sciatica of left side Dysuria Psychogenic fecal incontinence Pelvic pain [2] Past Medical History: Diagnosis Date Asthma H. pylori infection Murmur [3] Allergies Allergen Reactions Tramadol Other [4] Current Outpatient Medications: amLODIPine (Norvasc) 5 MG tablet, Take 1 tablet (5 mg) by mouth Once per day., Disp: 90 tablet, Rfl: 3 cholecalciferol (Vitamin D-3) 25 MCG (1000 UT) capsule, Take 1 capsule (25 mcg) by mouth Once per day., Disp: 90 capsule, Rfl: 3 Eye Itch Relief 0.035 % solution, INSTILL 1 DROP INTO THE AFFECTED EYE(S) TWICE DAILY, Disp: 10 mL,Rfl: 1 fluticasone (Flonase) 50 MCG/ACT nasal spray, INSTILL 1 SPRAY IN EACH NOSTRIL ONCE DAILY, Disp: 16 g, Rfl: 2 losartan (Cozaar) 50 MG tablet, TAKE 1 TABLET BY MOUTH EVERY DAY, Disp: 30 tablet, Rfl: 2 olopatadine (Pataday) 0.2 % ophthalmic solution, INSTILL 1 DROP INTO THE AFFECTED EYE(S) EVERY DAY,Disp: 2.5 mL, Rfl: 2 omeprazole (PriLOSEC) [address] capsule, TAKE 1 CAPSULE BY MOUTH EVERY DAY BEFORE BREAKFAST DO NOT BREAK, CRUSH, DISSOLVE OR CHEW, Disp: 30 capsule, Rfl: 2 rosuvastatin (Crestor) 40 MG tablet, Take 1 tablet (40 mg) by mouth Once per day., Disp: 30 tablet,Rfl: 2 sucralfate (Carafate) 1 g tablet, Take 1 g by mouth before breakfast, before lunch, before evening meal, and at bedtime., Disp: , Rfl: triamcinolone (Kenalog) 0.1 % cream, Apply topically if needed in the morning and at bedtime (pain and swelling)., Disp: 30 g, Rfl: 0 documented in this encounter Miscellaneous Notes * Assessment & Plan Note - Aidee Mackay NP - 06/05/2025 11:30 AM EDTAssociated Problem(s): Hypertension * Assessment & Plan Note - Aidee Mackay NP - 06/05/2025 11:30 AM EDTAssociated Problem(s): Dysuria Orders: Culture, Urine, Routine; Future * Assessment & Plan Note - Aidee Mackay NP - 06/05/2025 11:30 AM EDTAssociated Problem(s): Psychogenic fecal incontinence Orders: Referral to Gastroenterology; Future * Assessment & Plan Note - Aidee Mackay NP - 06/05/2025 11:30 AM EDTAssociated Problem(s): Pelvic pain Orders: Bacterial Vaginosis Panel documented in this encounter Plan of Treatment Scheduled Orders Name Type Priority Associated Diagnoses Orde r Schedule Culture, Urine, Routine Microbiology Routine Dysuria Expected: 06/05/2025 (Approximate), Expires: 06/05/2026 Bacterial Vaginosis Panel Microbiology Routine Pelvic pain Ordered: 06/05/2025 Scheduled Referrals Name Type Priority Associated Diagnoses Order Schedule Referral to Gastroenterology Outpatient Referral Routine Psychogenic fecal incontinence Expected: 06/05/2025 (Approximate), Expires: 06/05/2026 documented as of this encounter Visit Diagnoses Diagnosis Hypertension, unspecified type- Primary Dysuria Psychogenic fecal incontinence Pelvic pain documented in this encounter Additional Health Concerns Assessment Noted Time PHQ-9 Depression Total Score: 8 06/05/20 25 11:51 AM EDT documented as of this encounter Care Teams Urology Teacher Relationship Specialty Start Date End Date Aidee Mackay NP [address] [place] [address] PCP - General Family Medicine 04/21/24 documented as of this encounter
--- OUTSIDE RECORDS SUMMARY | 2025-06-05 16:12 | XMS_ITS | Encounter Summary ---
Author Organization [employer] Address [address] [facility] [address] [place] [address] Care Team Providers Care Supervisor Cartography Name Role Phone Aidee Mackay NP Primary Care Provider [phone] Reason for Visit * Reason Comments Med Refill Encounter Details Date Type Department Care Team ([facility] st Contact Info) Description 06/03/2025 Refill [facility] [address] [place], [place] [phone] Aidee Mackay NP [address] [place] [address] Hypertension, unspecified type Social History Tobacco Use Types Packs/Day Years [...] as of this encounter Plan of Treatment Not on file documented as of this encounter Visit Diagnoses Diagnosis Hypertension, unspecified type documented in this encounter Care Teams Supervisor Cartography Relationship Specialty Start Date End Date Aidee Mackay NP [address] [place] [id number] PCP - General Family Medicine 04/21/24 documented as of this encounter
--- OUTSIDE RECORDS SUMMARY | 2025-06-05 16:12 | XMS_ITS | Encounter Summary ---
Author Organization [employer] Address [address] [facility] [address] [place] [address] Care Team Providers Care Vehicle Operator Technician Name Role Phone Codie Aidee BALBUENA Primary Care Provider [phone] Encounter Details Date Type Department Care Team (Latest Contact Info) Description 06/05/2025 Travel Social History Tobacco Use Types Packs/Day Years [...] AM EDT documented as of this encounter Functional Status * Over the past 2 weeks, how often have you been bothered by any of the following problems? Question Answer Date of Assessment Author Patient Health Questionnaire -2 Score 3 06/05/2025 11:51 AM FERNANDAT Cathy Pop MA * Little interest or pleasure in doing things Answer Date of Assessment Author Several days 06/05/2025 11:51 AM Cathy Butts MA * Feeling down, depressed, or hopeless [...] Author Not at all 06/05/2025 11:51 AM FERNANDAT Catyh Pop MA * Thoughts that you would be better off or hurting yourself in some way Answer Date of Assessment Author Not at all 06/05/2025 11:51 AM EDT Cathy Pop MA * Patient Health Questionnaire-9 Score Answer Date of Assessment Author 8 06/05/2025 11:51 AM EDT Cathy Pop MA * How difficult have these problems made it for you to do your work, take care of things at home, or get along with other people? Answer Date of Assessment Author Somewhat difficult 06/05/2025 11:51 AM EDT Cathy Bolivar MA * Over the last 2 weeks, how often have you been bothered by any of the following problems? Question Answer Date of Assessment Author Feeling nervous, anxious, or on edge 3 06/05/2025 11:52 AM EDT Cathy Pop MA Not being able to stop or co ntrol worrying 3 06/05/2025 11:52 AM EDT Cathy Pop MA Worrying too much about diff erent things 3 06/05/2025 11:52 AM FERNANDAT Cathy Pop MA Trouble relaxing 3 06/05/2025 11:52 AM FERNANDAT Cathy Pop MA Being so restless that it is hard to sit still 3 06/05/2025 11:52 AM EDT Cathy Pop MA Becoming easily annoyed or irritable 3 06/05/2025 11:52 AM EDT Cathy Pop MA Feeling afraid as if somethi ng awful might happen 3 06/05/2025 11:52 AM EDT Cathy Pop MA JOVANNY-7 Total Score 21 06/05/2025 11:52 AM Cathy Butts MA documented as of this encounter Plan of Treatment Not on file documented as of this encounter Visit Diagnoses Not on filedocumented in this encounter Additional Health Concerns Assessment Noted Time PHQ-9 Depression Total Score: 8 06/05/20 25 11:51 AM EDT documented as of this encounter Care Teams Vehicle Operator Technician Relationship Specialty Start Date End Date Aidee Mackay NP [address] [place] [id number] PCP - General Family Medicine 04/21/24 documented as of this encounter
--- OUTSIDE RECORDS SUMMARY | 2025-06-05 16:12 | XMS_ITS | Encounter Summary ---
Author Organization [employer] Address [address] [facility] 7t [place] [address] Care Team Providers Care Puller Out Name Role Phone Aidee Mackay NP Primary Care Provider [phone] Reason for Referral * Consultation (Urgent) - Closed Specialty Diagnoses / Procedures Referred By Contfahad t Referred To Contact Optometry Diagnoses Photophobia of both eyes Aidee Mackay NP [address] [place] [address] Phone: tel: fax: [facility] OPTOMETRY [address] [place] [address] Phone: tel: fax: Referral ID Status Reason Start Date Expiration Date V isits Requested Visits Authorized [id number] Closed Consult and Treat 08/22/2024 08/22/2025 1 1 Encounter Details Date Type Department Care Team (Late st Contact Info) Description 08/22/2024 Orders Only [facility] [address] [place] [address] Aidee Mackay NP [address] [place] [address] Age related osteoporosis, unspecified pathological fracture presence (Primary Dx); Photophobia of both eyes Social History Tobacco Use Types Packs/Day Years Used Date Smoking Tobacco: Never Smokeless Tobacco: Never Alcohol Use Standard Drinks/Week Comments Yes 0 (1 standard drink = 0.6 oz pur e alcohol) occionally Housing Stability Answer Date Recorded What is your housing situation today? I have wilber sing 04/11/[address] you li [...] as of this encounter Plan of Treatment Scheduled Referrals Name Type Priority Associated Diagnoses Orde r Schedule Referral to [facility] Eye Care Outpatient Referral Urgent Photophobia of [...] Comprehensive Metabolic Panel (09/01/2024 2:31 PM EST) [facility] Signature Sodium 137 135 - 145 mmol/L [facility] Potassium 4.2 3.3 - 5.1 mmol/L [facility] Chloride 105 96 - 108 mmol/L [facility] Carbon Dioxide 25 22 - 29 mmol/L [facility] Anion Gap 11(L) 12 - 20 [facility] Urea Nitrogen (BUN) 17(H) 9 - 16 mg/dL [facility] Creatinine, Serum 0.97 0.5 - 1.4 mg/dL [facility] Estimated Glomerular Filt Rate 56 [facility] Comment:Chronic Kidney Disea se: Estimated GFR < 60 mL/min/1.44x4Kzmued Kidney Disease: Estimated GFR < 15 mL/min/1.73m2 Glucose 137(H) 60 - 115 mg/dL [facility] Calcium 9.0 8.4 - 10.2 mg/dL [facility] Bilirubin, Total 0.6 0.0 - 1.0 mg/dL [facility] Aspartate Amino Transferase 25 5 - 31 U/L [facility] Alanine Aminotransferase 26 0 - 31 U/L [facility] Total Protein 7.7 6.5 - 8.0 g/dL [facility] Albumin Level 4.3 3.5 - 5.0 g/dL [facility] Alkaline Phosphatase 79 39 - 117 U/L [facility] Blood Venous blood specimen / Unknown 09/01/2024 2:31 PM EST 09/01/2024 4:22 PM EST us Aidee Mackay PROJECT FINANCE ANALYST LAB BLOOD ORDERABLES Final Resul t [facility] [address] [place] [address] [phone] * TSH W/Reflex to FT4 (09/01/2024 2:31 PM EST) TSH reflex Free T4 3.26 0.32 - 4.0 uIU/mL [facility] Blood Venous blood specimen / Unknown 09/01/2024 2:31 PM EST 09/01/2024 4:22 PM EST us Aidee Mackay PROJECT FINANCE ANALYST LAB BLOOD ORDERABLES Final Resul t [facility] [address] [place] [phone] documented in this encounter Visit Diagnoses Diagnosis Age related osteoporosis, unspecified pathological fracture presence- Primary Photophobia of both eyes Visual discomfort documented in this encounter Care Teams Puller Out Relationship Specialty Start Date End Date Aidee Mackay NP [address] [place] [address] PCP - General Family Medicine 04/21/24 documented as of this encounter
--- OUTSIDE RECORDS SUMMARY | 2025-06-05 16:12 | XMS_ITS | Clinical Summary ---
Author Organization [facility] Address [address] [place] [address] Phone Care Team Providers Care Insole Stiffener Name Role Phone Physician, Pcp Unknown Primary Care Provider Aixa vailable Encounters Date Type Department Care Team Description 04/22/2025 11:16 AM EDT - 04/22/2025 11:59 PM EDT Hospital Encounter [facility] Ultrasound [address] [place] [address] Lower abdominal pain Discharge Disposition: Home or Self Care from Last 3 Months Social History Tobacco Use Types Packs/Day Years Used Date Smoking Tobacco: Never Assessed Comments Unknown Sex and Gender Information Value Date Recorded Sex Assigned at Not on file Legal Sex Female 3:10 PM EDT Gender Identity Not on file Sexual Orientation Not on file Plan of Treatment Health Maintenance Due Date Last Done Comments Breast Cancer Screening 1950 DTaP,Tdap,and Td Vaccines (1 - Tdap) 1971 Pneumococcal Vaccine: 50+ Ye ars (1 of 1 - PCV) 2002 Zoster Vaccines (1 of 2) 2002 Depression Screening 09/17/2024 Colorectal Cancer Screening: Colonoscopy 04/22/2025 Falls Risk Assessment 04/22/2025 Hepatitis C Screening 04/22/2025 Medicare Annual Wellness Visit 04/22/2025 Osteoporosis Screening (Bone Density Screening) 04/22/2025 Social Influencers of Health Screening 04/22/2025 COVID-19 Vaccine ( - 2023-2 5 season) 2025 Influenza Vaccine (#1) 2025 RSV Immunization Adult Patie nts (1 - 1-dose 75+ series) 2027 HIB Vaccines Aged Out No longer eligi [...] on patient's age to complete this topic MMR Vaccines Aged Out No longer eligi ble based on patient's age to complete this topic Meningococcal ACWY Vaccine Aged Out N o longer eligible based on patient's age to complete this topic Meningococcal B Vaccine Aged Out No l onger eligible based on patient's age to complete this topic RSV Immunization Patients Un veronica 20 months Aged Out No longer eligible b ased on patient's age to complete this topic Varicella Vaccines Aged Out No longer eligible based on patient's age to complete this topic Procedures Procedure Name Priority Date/Time Associated Diagnosis Comments US PELVIS NON OB COMPLETE W TRANSVAGINAL Routine 04/22/2025 11:56 AM EDT Lower abdominal pain from Last 3 Months Results * US Pelvis Non OB Complete w Transvaginal (04/22/2025 11:56 AM EDT) Anatomical Region Laterality Modality Body, Pelvis Ultrasound 04/22/2025 1:14 PM EDT Impressions 04/22/2025 1:19 PM EDT There is no endometrial thickening. There are some small anechoic spaces within the endometrial cavity with some discontinuity which could be related to effusions or small areas of mild thickening. This would not account for pain. If there is any vaginal bleeding, follow-up may be helpful in approximately 6 months. -------- FINAL REPORT -------- Dictated By: Tigre Bryan Dictated Date: 04/22/2025 13:14 ET Assigned Physician: Tigre Bryan Reviewed and Electronically Signed By: Tigre Bryan Signed Date: 04/22/2025 13:19 ET Workstation ID: [id number] Transcribed By: Self Edit Transcribed Date: 04/22/2025 13:14 ET Narrative 04/22/2025 1:19 PM EDT EXAM: PELVIC ULTRASOUND CLINICAL INFORMATION: Lower abdominal pain. Symptoms for couple of weeks per patient. TECHNIQUE: Transcutaneous pelvic ultrasound. Transvaginal scanning was performed following voiding to better evaluate the uterine contents and adnexa. Color mapping was performed. Doppler spectral analysis was performed. Comparison: No prior studies are available for comparison. FINDINGS: Quality: Adequate Expected region of vagina: No suspicious abnormality Cervix: The estimated cervical length is approximately 2.6 cm. There are some small anechoic spaces associated with the lining of the cervix likely small nabothian cysts. No suspicious abnormalities. Uterine position: Anteverted Uterine size: 7.1 x 2.3 x 2.9 cm Endometrium: There is some fluid within the endometrial cavity. There are some discontinuous anechoic spaces. The endometrial thickness is approximately 0.4 cm. Small areas of thickening measuring up to 0.3 cm may be present. Alternatively there could be adhesions with incomplete distribution of fluid within the cavity. No large endometrial mass. Myometrium: No suspicious abnormality. Uterine contour: Smooth Right ovary: The right ovary is not discretely identified. No suspicious right adnexal mass or collection. Color mapping: Color mapping was attempted. Doppler spectral analysis: No ovarian tissue available for analysis. Left ovary: The left ovary is not discretely identified. No suspicious left adnexal mass or collection. Color mapping: Color mapping was attempted. Doppler spectral analysis: No ovarian tissue available for analysis Free fluid: None. Procedure Note Tigre Bryan MD - 04/22/2025 EXAM: PELVIC ULTRASOUND CLINICAL INFORMATION: Lower abdominal pain. Symptoms for couple of weeksper patient. TECHNIQUE: Transcutaneous pelvic ultrasound. Transvaginal scanning was performed following voiding to better evaluatethe uterine contents and adnexa. Color mapping was performed. Doppler spectral analysis was performed. Comparison: No prior studies are available for comparison. FINDINGS: Quality: Adequate Expected region of vagina: No suspicious abnormality Cervix: The estimated cervical length is approximately 2.6 cm. There aresome small anechoic spaces associated with the lining of the cervix likelysmall nabothian cysts. No suspicious abnormalities. Uterine position: Anteverted Uterine size: 7.1 x 2.3 x 2.9 cm Endometrium: There is some fluid within the endometrial cavity. There aresome discontinuous anechoic spaces. The endometrial thickness is approximately 0.4 cm. Small areas of thickening measuring up to 0.3 cm may be present.Alternatively there could be adhesions with incomplete distribution offluid within the cavity. No large endometrial mass. Myometrium: No suspicious abnormality. Uterine contour: Smooth Right ovary: The right ovary is not discretely identified. No suspiciousright adnexal mass or collection. Color mapping: Color mapping was attempted. Doppler spectral analysis: No ovarian tissue available for analysis. Left ovary: The left ovary is not discretely identified. No suspiciousleft adnexal mass or collection. Color mapping: Color mapping was attempted. Doppler spectral analysis: No ovarian tissue available for analysis Free fluid: None. IMPRESSION: There is no endometrial thickening. There are some small anechoic spaceswithin the endometrial cavity with some discontinuity which could berelated to effusions or small areas of mild thickening. This would not account for pain. If there is any vaginal bleeding, follow-up may be helpful inapproximately 6 months. -------- FINAL REPORT -------- Dictated By: Tigre Bryan Dictated Date: 04/22/2025 13:14 ET Assigned Physician: Tigre Bryan Reviewed and Electronically Signed By: Tigre Bryan Signed Date: 04/22/2025 13:19 ET Workstation ID: [id number] Transcribed By: Self Edit Transcribed Date: 04/22/2025 13:14 ET us Maulik Bonds IMG US PROCEDURES Fin al Result from Last [address] [facility] MEDICARE Member Subscriber Plan / Payer (Ef fective 2024-Present) Name:Mendy Ghotra Relation to Subscriber:Self Name:Mendy Ghotra Payer ID:[id number] Group ID:[id number] Type:Not on file Address: [place] [address] [address] [id number] MEDICAID - [place] Care Teams Insole Stiffener Relationship Specialty Start Date End Date Physician, Pcp Unknown PCP - General 04/22/25
--- OUTSIDE RECORDS SUMMARY | 2025-06-05 16:12 | XMS_ITS | Clinical Summary ---
Author Organization [employer] Address [address] [facility] [address] [place] [address] Care Team Providers Care Rn Progressive Care Name Role Phone Aidee Mackay NP Primary Care Provider [phone] Allergies Active Allergy Reactions Criticality Noted Date Comments Tramadol Other 11/13/2024 Medications sucralfate (Carafate) 1 g tablet Take 1 g by mouth before breakfast, before lunch, before evening meal, and at bedtime. Active rosuvastatin (Crestor) 40 MG tabletIndications :Mixed hyperlipidemia Take 1 tablet (40 mg) by mouth Once per day. 30 tablet 2 04/21/20 24 Active triamcinolone (Kenalog) 0.1 % cream Apply topically if needed in the morning and at bedtime (pain and swelling). 30 g 05/26/20 24 Active cholecalciferol (Vitamin D-3) 25 MCG (1000 UT) capsule Take 1 capsule (25 mcg) by mouth Once per day. 90 capsule 3 08/22/20 24 2024 Active Eye Itch Relief 0.035 % solutionIndicatio ns:Allergic conjunctivitis of both eyes INSTILL 1 DROP INTO THE AFFECTED EYE(S) TWICE DAILY 10 mL 1 11/26/19 25 Active omeprazole (PriLOSEC) [address] capsuleIndication s:Bloating TAKE 1 CAPSULE BY MOUTH EVERY DAY BEFORE BREAKFAST DO NOT BREAK, CRUSH, DISSOLVE OR CHEW 30 capsule 2 02/06/20 25 Active fluticasone (Flonase) 50 MCG/ACT nasal sprayIndications: Atopic dermatitis, unspecified type INSTILL 1 SPRAY IN EACH NOSTRIL ONCE DAILY 16 g 2 03/06/20 25 Active olopatadine (Pataday) 0.2 % ophthalmic solution INSTILL 1 DROP INTO THE AFFECTED EYE(S) EVERY DAY 2.5 mL 2 05/22/20 25 Active losartan (Cozaar) 50 MG tabletIndications :Hypertension, unspecified type TAKE 1 TABLET BY MOUTH EVERY DAY 30 tablet 2 06/04/20 25 Active amLODIPine (Norvasc) 5 MG tablet Take 1 tablet (5 mg) by mouth Once per day. 90 tablet 3 06/05/20 25 2025 Active olopatadine (Pataday) 0.2 % ophthalmic solution Administer 1 drop into affected eye(s) Once per day. 2.5 mL 2 09/01/20 24 2024 Discontinued losartan (Cozaar) 50 MG tabletIndications :Hypertension, unspecified type TAKE 1 TABLET BY MOUTH EVERY DAY 30 tablet 2 03/02/20 25 2024 Discontinued Active Problems Problem Noted Date Diagnosed Date Dysuria 06/05/2025 Assessment & Plan (06/05/2025 1:15 PM EDT): Orders: Culture, Urine, Routine; Future Psychogenic fecal incontinence 06/05/2025 Assessment & Plan (06/05/2025 1:15 PM EDT): Orders: Referral to Gastroenterology; Future Pelvic pain 06/05/2025 Assessment & Plan (06/05/2025 1:15 PM EDT): Orders: Bacterial Vaginosis Panel Left arm pain 01/12/2025 Assessment & Plan (02/07/2025 12:12 PM EDT): X-ray negative, referral to physical therapy Left leg pain 01/12/2025 Assessment & Plan (02/07/2025 12:12 PM EDT): Suspect sciatica, referral to physiatry Foot pain, left 01/12/2025 Sciatica of left side 01/12/2025 Vision loss, left eye 12/11/2024 Assessment & [...] & Plan (12/11/2024 2:37 PM EDT): 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 Constipation 11/07/2024 Atopic dermatitis 09/01/2024 Eczema 05/26/2024 Assessment & Plan (06/14/2024 6:01 PM EDT): Eruption consistent with atopic dermatitis topical steroid prescribed Moderate mixed hyperlipidemia not requiring stat in therapy 05/26/2024 Anxiety 04/21/2024 Assessment & Plan (04/21/2024 10:38 AM EDT): Supported through therapy currently Hypertension 04/21/2024 Assessment & Plan (06/05/2025 1:15 PM EDT): Assessment & Plan (12/11/2024 2:38 PM EDT): [...] to vascular Murmur 04/21/2024 Assessment & Plan (02/07/2025 12:12 PM EDT): Reassuring from a primary care standpoint, no vavular pathology on echo 10/11 Referral per pt preference Assessment & Plan (12/11/2024 2:37 PM EDT): [...] Encounters Date Type Department Care Team Description 06/05/2025 11:30 AM EDT Office Visit [facility] [address] [place] [phone] Aidee Mackay NP Hypertension, unspecified type (Primary Dx); Dysuria; Psychogenic fecal incontinence; Pelvic pain 06/05/2025 Travel 06/03/2025 Refill [facility] [address] [place] [phone] Aidee Mackay NP Hypertension, unspecified type 05/29/2025 Telephone [facility] PEDS [address] [place] [address] Aidee Mackay NP Chart Prep 05/26/2025 Telephone [facility] [address] [place] [phone] Aidee Mackay NP 05/22/2025 Refill [facility] [address] [place] [phone] Aidee Mackay NP 04/20/2025 6:20 PM EDT Office Visit [facility] [address] [place] [phone] Maulik Nuñez MD Lower abdominal pain (Primary Dx) 04/20/2025 Travel 03/11/2025 Telephone [facility] [address] [place] [phone] Aidee Mackay NP Med Refill; Referral (Pt requesting to know the status of the referral for the provider network manager. Pt wants provider network manager referral to be sent to [facility]. Notes says referral was incomplete by pcp ) 03/06/2025 Refill [facility] [address] [place] [address] Aidee Mackay NP Atopic dermatitis, unspecified type from Last 3 Months Family History Medical [...] Mass Index 23.51 06/05/2025 11:39 AM EDT Plan of Treatment Health Maintenance Due Date [...] COVID-19 Vaccine (1 - 2023-2 5 season) 2025 Influenza Vaccine (#1) 2025 Alcohol/Substance Use Screening 09/01/2025 09/01/2024 Depression Screening 06/05/2026 06/05/2025, 06/05/2025 SDOH Screening 06/05/2026 06/05/2025 Tobacco Screening 06/05/2026 06/05/2025 Mammogram 08/13/2026 08/13/2024 Lipid Panel 05/17/2029 05/17/2024 [...] Procedure Name Priority Date/Time Associated Diagnosis Comments POCT URINALYSIS DIPSTICK Routine 04/20/2025 6:15 PM EDT Lower abdominal pain BI MAMMOGRAM SCREENING TOMOSYNTHESIS BILATERAL Routine 08/13/2024 11:25 AM EST Encounter for screening mammogram for malignant neoplasm of breast LIPID PANEL, STANDARD Routine 05/17/2024 9:43 AM EDT Mixed hyperlipidemia from Last 3 Months or Most Recently Relevant to Health Maintenance Results * (ABNORMAL) POCT Urinalysis (04/20/2025 6:15 PM EDT) Color, UA Yellow Clarity, UA Clear Glucose, UA Negative Bilirubin, UA Negative Ketones, UA Negative Spec Grav, UA 1.015 Blood, UA Positive(A) Negative, None Detected Comment:trace-lysed pH, UA 7.0 Protein, UA Negative Urobilinogen, UA 0.2 Leukocytes, UA Negative Negative, Rare, Trace Nitrite, UA Negative Negative, None Detected Appearance, UA yellow clear QC Media Lot # [id number] Lot# Expiration Date [id number] Urine 04/20/2025 6:15 PM EDT Maulik Bonds MD POINT OF CARE TEST ENTER/EDIT ORDERABLES Final Result * BI Mammogram Screening Tomosynthesis Bilateral (08/13/2024 11:25 AM EST) Anatomical Region Laterality Modality Breast Bilateral Mammography 08/13/2024 11:2 5 AM EST Narrative 08/22/2024 9:43 AM EST [facility] [address] [place] [address] Mammography Report Signed Patient: Mendy Gautam MR#: [id number] : 1950 Acct:[id number] Age/Sex: 74 / F ADM Date: 08/13/24 Loc: HO.MAMMO Attending Dr: Aidee Mackay WHITE SPOOLER Ordering Physician: Aidee Mackay NP Results: 1Negati ve Date of Service: 08/13/24 Follow Up: 1 Year From Orig inal Mammogram Procedure(s): MM tomosynthesis screening BI Accession Number(s): [id number] cc: Aidee Mackay NP EXAMINATION: MM SCREENING DIGITAL BREAST TOMOSYNTHESIS, BILATERAL [...] 08/22/24 0940 DD/ 1125 TD/TT: 08/13/24 1140 Web Consultant: Procedure Note Donotuseinterpreter, Image - 08/22/2024 [facility] [address] [place], [place] [address] Mammography Report Signed Patient: Mendy GautamMR#: [id number] : 2Acct:[id number] Age/Sex: 74 / FADM Date: 08/13/24 Loc: HO.MAMMO Attending Dr: Aidee Mackay WHITE SPOOLER Ordering Physician: Aidee Mackay NPResults: 1Negati ve Date of Service: 08/13/24Follow Up: 1 Year From Orig ina Mammogram Procedure(s): MM tomosynthesis screening BI Accession Number(s): [id number] cc: Aidee Mackay NP EXAMINATION: MM SCREENING DIGITAL BREAST TOMOSYNTHESIS, BILATERAL [...] 08/22/24 0940 DD/ 1125 TD/TT: 08/13/24 1140 Web Consultant: Aidee Mackay NP IMG BI PROCEDURES Edited Result - Final * (ABNORMAL) Lipid Panel, Standard (05/17/2024 9:43 AM EDT) Triglycerides 176(H) <150 mg/dL [facility] Comment:Desirable Triglyceri de: less than 150 mg/dLBorderline High Triglyceride 150-199 mg/dLHigh Triglyceride: 200-499 mg/dLVery High Triglyceride: greater than or equal to 5OO mg/dL Cholesterol 250(H) <200 mg/dL [facility] Comment:Desirable Cholestero l: less than 200 mg/dLBorderline High Cholesterol: 200-239 mg/dLHigh Cholesterol: greater than 239 mg/dL LDL Cholesterol Calculated 159(H) <100 mg/dL [facility] Comment:Desirable LDL: less than 100 mg/dLNear Optimal/Above Optimal LDL: 110- 129 mg/dLBorderline High LDL: 130-159 mg/dLHigh LDL: 160-189 mg/dLVery High LDL: greater than or equal to 190 mg/dL HDL Cholesterol 56 >40 mg/dL [facility] Comment:Desirable HDL: great er than 40 mg/dL Note: This HDL assay may give artificially low results in patients with liver disease. Blood Venous blood specimen / Unknown 05/17/2024 9:43 AM EDT 05/17/2024 9:49 AM EDT us Aidee Mackay NP LAB BLOOD ORDERABLES Final Resul t [facility] [address] [place] [address] [phone] from Last 3 Months or Most Recently Relevant to Health Maintenance Insurance [facility] STANDARD [facility] OPTIONS (HMO D-SNP) Care Teams Rn Progressive Care Relationship Specialty Start Date End Date Aidee Mackay NP [address] [place] [address] PCP - General Family Medicine 04/21/24
--- OUTSIDE RECORDS SUMMARY | 2025-06-05 16:12 | XMS_ITS | Encounter Summary ---
Author Organization [employer] Address [address] [facility] [address] [place] [address] Care Team Providers Care Photographic Plate Maker Name Role Phone Aidee Mackay NP Primary Care Provider [phone] Reason for Visit * Reason Onset Date Comments Chart Prep 05/29/2025 Encounter Details Date Type Department Care Team ([facility] Contact Info) Description 05/29/2025 Telephone [facility] [address] [place], [place] [phone] Aidee Mackay, ESHA [address] [place] [address] Chart Prep Social History Tobacco Use Types Packs/Day Years [...] encounter Miscellaneous Notes * Telephone Encounter - Cathy Pop [place] - 05/29/2025 9:26 AM EDT Chart Prep Labs: done Images: not done Referrals: appointment pending Vaccines due: Covid, Flu, PCV20, RSV, Zoster, and DTAP Screenings: colonoscopy Overdue care gaps: sdoh , jeanette-7,oral phq-9 tab documented in this encounter Plan of Treatment Not on file documented as of this encounter Visit Diagnoses Not on filedocumented in this encounter Care Teams Photographic Plate Maker Relationship Specialty Start Date End Date Aidee Mackay NP [address] [place] [address] PCP - General Family Medicine 04/21/24 documented as of this encounter
[2025-06-05 21:12] LABS: Bacterial Vaginosis PCR POSITIVE (Negative); Candida Group PCR NOT DETECTED (Not Detect); Candida glab krusei PCR NOT DETECTED (Not Detect); Trichomonas vaginalis PCR NOT DETECTED (Not Detect)
== END 2025-06-05 16:10 | disposition home or self-care (01) ==
LOC: HO.HHCLNP 16:09
PROVIDERS: Visit Provider Nurse Practitioner Family
DX: R10.2 Pelvic and perineal pain (principal); R30.0 Dysuria
CPT/HCPCS: 81515; 87086

== ENCOUNTER 2025-08-12 16:36 | Outpatient (REF) | payer OTHER, SELFPAY ==
--- OUTSIDE RECORDS SUMMARY | 2025-08-12 17:57 | XMS_ITS | Data Portability ---
Author Organization [employer] [facility] Address [address] [place] [address] Care Team Providers Care Firearms Inspector Name Role Phone HIM CCA OTHER Assessment Encounter Date Assessment Date Assessment LastModified by Organization Details LastModified Time 09/16/2024 09/16/2024 I provided real -time medical direction via phone for this encounter and was available for additional phone-based assistance as needed. I have reviewed and agree with the Assessment and Plan as documented by the Laboratory Director. Patient given the opportunity to ask questions. Our service contacted for an assessment of: Viral URI symptoms As per above, patient with approximately several days of viral URI symptoms. Denies fever or chills. Has run out of albuterol nebulizers and would like a refill. Denies chest pain, shortness of breath, dyspnea on exertion. Positive nasal congestion and dry cough. Positive sick contacts. Per planishing press operator on the scene, vital signs are stable and patient is afebrile. Minimal wheezing heard on exam. Albuterol neb given x1 with good effect. No increased work of breathing and no distress. Impression: Common cold and viral URI Plan: Albuterol neb x1 given. Refill for albuterol nebs at patient uses several times a day. Continue with [id number] medications to control symptoms. Red flags discussed as to when to seek a higher level care. Allergies: Reviewed PCP f/u: We discussed the diagnostic uncertainty of home visits and the risk associated with this. In this case, the patient and I felt this to be an acceptable and reasonable amount of risk given the benefit of avoiding an ED visit. We discussed the need to seek care urgently/emergen tly in the setting of any new or worsening serious symptoms, particularly fever chills [email or web address] Not available 09/16/2024 22:43:22 Plan of Treatment Reminders Order Date Submit Date Provider Last Modified By Organization Details Last Modified Time Details Appointments None recorded. Lab rapid flu (A+B) [address], [id number] 4 22:43:12 rapid SARS CoV 2 Ag, QL IA, respiratory specimen [address], [phone] 22:43:12 Referral None recorded. Procedures None recorded. Surgeries None recorded. Imaging None recorded. Medication Orders albuterol sulfate 2.5 mg/3 mL (0.083 %) solution for nebulizatio n [address] [facility] [address] [facility], [address] [place] [address], [id number], 22:43:12 albuterol sulfate 2.5 mg/3 mL (0.083 %) solution for nebulizatio n 2023 [facility][id number], [address] [place], [id number], 22:43:14 Patient TargetsNo targets recorded. Patient InstructionsNo instructions recorded. Reason for Referral None Reported. Results Created Date Observation Date Name Description Value Unit Range Abnormal Flag Note LastModifiedBy Organization Detail LastModifiedTime 09/16/2009/16/2024 rapid SARS CoV 2 Ag, QL IA, respi rator y speci men rapid SARS CoV 2 Ag, QL IA, respiratory specimen negati ve Not Available [facility] ed [address] [place] [address], [id number] 09/16/2024 22:42:02 09/16/2009/16/2024 rapid flu (A+B) Flu negati ve Not Available [facility] ed [address] [place] [address], [id number] 09/16/2024 22:42:01 Result Notes None recorded. Medical Equipment None Reported. Allergies Allergen ID Allergen Name Allergen Category Reaction Reaction Severity Criticality Documentation Date Start Date Code Code System Note Provider Name and Address Organization Details Recorded Time 46399 Ultram medicatio n Not available Not available Not available 09/16/2024 22813 6 RxNorm Not Available [facility] - production 4 14:30:04 Medications Name Sig Start Date Stop Date Status Note LastModified by Organization Details LastModified Time losartan 50 mg tablet TAKE 1 TABLET BY MOUTH EVERY DAY active Not Available Not Available No t Available albuterol sulfate 2.5 mg/3 mL (0.083 %) solution for nebulization Inhale 3 mL 3 times a day by nebulizatio n route for 30 days. active Not Available Not Available No t Available losartan 25 mg tablet TAKE 1 TABLET BY MOUTH ONCE DAILY active Not Available Not Available No t Available omeprazole 20 mg capsule,jimbo yed release TAKE 1 CAPSULE BY MOUTH EVERY DAY BEFORE BREAKFAST DO NOT BREAK, CRUSH, DISSOLVE OR CHEW active Not Available Not Available No t Available fluticasone propionate 50 mcg/actuatio n nasal spray,suspen shayy INSTILL 1 SPRAY IN EACH NOSTRIL ONCE DAILY active Not Available Not Available N ot Available Vitamin D3 25 mcg (1,000 unit) capsule TAKE 1 CAPSULE BY MOUTH EVERY DAY active Not Available Not Available No t Available rosuvastatin 40 mg tablet TAKE 1 TABLET BY MOUTH ONCE DAILY active Not Available Not Available No t Available olopatadine 0.2 % eye drops INSTILL 1 DROP INTO THE AFFECTED EYE(S) EVERY DAY active Not Available Not Available No t Available Eye Itch Relief 0.025 % (0.035 %) drops INSTILL 1 DROP INTO THE AFFECTED EYE(S) TWICE DAILY active Not Available Not Available Not Available Vitals Date Recorded Respiratory rate Heart rate Oxygen saturation Body temperature Systolic And Diastolic Provider Name and Address Organization Details Last Updated DateTime 4 16 /min 72 /min 99 % 98.4 [degF] 124/60 mm[Hg] Not Available [facility] - production 4 16:37:14 Social History None recorded. Functional Status None recorded. Mental Status None recorded. Family History Nothing Reported. Medical History No medical history recorded. Gynecological HistoryNo gynecological history recorded. Obstetrics History GPAL:G 0 P 0 0 0 0 Past Encounters Encounter ID Performer Location Encounter Start Date Encounter Closed Date Diagnosis/Indication Diagnosis SNOMED-CT Code Diagnosis ICD10 Code Diagnosis IMO Codes Diagnosis Note [id number] Fern Harrison MD Main - [facility] [address] [place] [phone] 09/16/2024 16:37:12 09/17/2024 22:04:05 Common cold [id number] J00 Health Concerns Section Related Observation LastModified by Organization Detai ls LastModified Time None Recorded Concern Status LastModified by Organization Details LastModified Time None Recorded Advance Directives Directive None Recorded Payers Insurance Date Sequence Insurance Name Policy Number Policy Dumont Covered Member ID Dumont Member ID Guarantor Name 09/17/2024 1 [facility] - DOS ON OR AFTER 2022 - DUAL ELIGIBLE - INTERMEDIATE OPTIONS AND ONE CARE (MEDICARE REPLACEMENT/ADV ANTAGE - HMO) Mendy Alex [id number] Mendy Alex Notes Date Note Type Note Provider Name and Address Organization Details Recorded Time 09/16/2024 text/html CRC Nurse Triage Notes (Rodrick Means - RN): Reason For Request: Patient has been sick for about 2 weeks, coughing, chest congestion, and minor breathing problems. Denies: Sudden onset of dental pain, unable to manage own secretions Nosebleed lasting longer than one hour; unable to stop bleeding Throat swelling/difficult swallowing Chief Complaints: Common cold symptoms, Nausea PMH: Hypertension, Asthma Comments: Licensed Mortgage Loan Officer verified the patient's name//address and phone number. Pt reports for 16 days I am not getting better . Pt states nausea, vomiting, diarrhea, fever, back pain, head and chest congestion, and cough. Pt reports she coughs up yong colored phlegm. Pt reports she has no appetite and feels that she has no strength. Education provided on the response time and the patient was advised to monitor reported s/s and seek emergency treatment if needed -Gaudencio Means RN Laboratory Director Organization Information for [facility] Business Legal Name: [employer]. Address: [address] [place] [address], Coding Auditor: Harsha Prater MD CLIA No.: [id number] Laboratory Director POC Test Results from [facility] Rapid influenza antigen (16:36:30) Flu: - Rapid COVID antigen (16:36:31) COVID: - .................. .................. .................. .................. .................. .................. .................. ............... Laboratory Director Note From [facility]: Dispatched to the call address for the elderly female with cold like symptoms. Pt states she has had nasal congestion, lethargy, productive cough and body aches for 2 weeks now. She states she has not spoken to her PCP but has been taking OTC medication which seems to help a bit. She states she was using her nebulizer but ran out of albuterol. She denies chest pain, diff breathing/shortnes s of breath, fever or urinary s/s. Pt was found opening door, in no apparent distress, CAOx4, airway open and patent, breathing non labored, able to speak in full sentences, -JVD, -HEENT, skin PWD with good turgor, mucous membranes pink and moist, pupils PERRL, abd soft non tender/distended, lung sounds with slight rhonchi in upper left otherwise CTA, +CMSx4, -edema/swelling, afebrile, Rapid Covid/flu (-). [facility] consulted. Pt advised to follow up with PCP. Pt given albuterol updraft. Script called into preferred pharmacy. Red flags discussed. ALL times are approx. .................. .................. .................. .................. .................. .................. .................. ............... [facility] Consulted: Fern Harrison .................. .................. .................. .................. .................. .................. .................. ............... Disposition: Fulfilled Fern Harrison MD [address] [place] [address],[address] [facility], [place], [phone], [employer] 09/16/2024 22:43:50 OBGyn Episode No OBEpisode recorded.
--- OUTSIDE RECORDS SUMMARY | 2025-08-12 17:57 | XMS_ITS | Clinical Summary ---
Author Organization [facility] Address [address] [place] [phone] Phone Care Team Providers Care Route Process Administrator Name Role Phone Physician, Pcp Unknown Primary Care Provider Aixa vailable Social History Tobacco Use Types Packs/Day Years Used Date Smoking Tobacco: Never Assessed Comments Unknown Sex and Gender Information Value Date Recorded Sex Assigned at Not on file Legal Sex Female 3:10 PM EDT Gender Identity Not on file Sexual Orientation Not on file Plan of Treatment Health Maintenance Due Date Last Done Comments Breast Cancer Screening 1950 Colorectal Cancer Screening: Colonoscopy 1950 DTaP,Tdap,and Td Vaccines (1 - Tdap) 1971 Pneumococcal Vaccine: 50+ Ye ars (1 of 1 - PCV) 2002 Zoster Vaccines (1 of 2) 2002 Depression Screening 09/17/2024 Falls Risk Assessment 04/22/2025 Hepatitis C Screening 04/22/2025 Medicare Annual Wellness Visit 04/22/2025 Osteoporosis Screening (Bone Density Screening) 04/22/2025 Social Influencers of Health Screening 04/22/2025 COVID-19 Vaccine (1 - 2024-2 6 season) 2025 Influenza Vaccine (#1) 2025 RSV [...] on patient's age to complete this topic Insurance [facility] Member Subscriber Plan / Payer (Ef fective 2024-Present) Name:Mendy Ghotra Relation to Subscriber:Self Name:Mendy Ghotra Payer ID:[id number] Group ID:[id number] Type:Not on file Address: [address] [place] [phone] MEDICA[place] - [place] Care Teams Route Process Administrator Relationship Specialty Start Date End Date Physician, Pcp Unknown PCP - General 04/22/25
[2025-08-13 05:02] LABS: Bacterial Vaginosis PCR POSITIVE (Negative); Candida Group PCR NOT DETECTED (Not Detect); Candida glab krusei PCR NOT DETECTED (Not Detect); Trichomonas vaginalis PCR NOT DETECTED (Not Detect)
== END 2025-08-12 16:37 | disposition home or self-care (01) ==
LOC: HO.HHCLNP 16:36
PROVIDERS: Visit Provider Nurse Practitioner
DX: Z20.2 Contact with and (suspected) exposure to infections with a predominantly sexual mode of transmission (principal); R10.20 Pelvic and perineal pain unspecified side
CPT/HCPCS: 81515

== ENCOUNTER 2025-08-14 10:28 | Outpatient (REF) | payer OTHER, SELFPAY ==
--- OUTSIDE RECORDS SUMMARY | 2025-08-12 11:15 | XMS_ITS | Encounter Summary ---
Author Organization [facility] Address [address] [place] [address] Care Team Providers Care Assembly Line Supervisor Name Role Phone Aidee Mackay NP Primary Care Provider [phone] Reason for Referral * Imaging (STAT) - Pending Review Specialty Diagnoses / Procedures Referred By Contfahad t Referred To Contact Radiology Diagnoses Lower abdominal pain Vaginal pain Procedures CT Abdomen Pelvis w/ Contrast Elizabeth Mariscal NP [address] [place] [address] Phone: tel: fax: [facility] [address] [place] [phone] Phone: tel: fax: Referral ID Status Reason Start Date Expiration Date V isits Requested Visits Authorized [id number] Pending Review 08/12/2025 08/12/2026 1 1 Encounter Details Date Type Department Care Team (Late st Contact Info) Description 08/12/2025 11:15 AM EST Office Visit [facility] [address] [place], [place] [phone] Elizabeth Mariscal NP [address], [place] [phone] Lower abdominal pain (Primary Dx); Vaginal pain Social History Tobacco Use Types Packs/Day [...] Sign Reading Time Taken Comments Blood Pressure 132/82 08/12/2025 11:48 AM EST Pulse 91 08/12/2025 11:48 AM EST Temperature 36.8 C (98.3 F) 08/12/2025 11:48 AM EST Respiratory Rate 22 08/12/2025 11:4 8 AM EST Oxygen Saturation 97% 08/12/2025 11: 48 AM EST Inhaled Oxygen Concentration - - Weight 55.2 kg (121 lb 12.8 oz) 025 11:48 AM EST Height 152.4 cm (5') 08/12/2025 11:48 AM EST Body Mass Index 23.79 08/12/2025 11:48 AM EST documented in this encounter Progress Notes * Elizabeth Mariscal NP - 08/12/2025 11:15 AM EST SUBJECTIVE: Mendy Alex is a 75 y.o. female who presents for sick visit. Mendy Alex, 75-year-old female - Lower abdominal and pelvic pain started approximately 2 months ago, described as aching and bothersome, worse when lying down or with pressure - Underwent endovaginal ultrasound after initial evaluation - Vaginal swab performed during visit with PCP positive for BV - Treated with metronidazole gel (5 applicators), reused last two applicators after washing - Initial improvement in symptoms, but discomfort recurred. - Requesting refill of metrogel for symptoms - Reports bloating, occasional diarrhea, and rare constipation - Denies abnormal vaginal discharge, itching, burning with urination, fever, nausea, or vomiting - No blood in urine or stool - Not sexually active Review of Systems Constitutional: Negative. Negative for chills and fever. Respiratory: Negative for chest tightness and shortness of breath. Cardiovascular: Negative for chest pain. Gastrointestinal: Positive for abdominal pain. Negative for constipation, diarrhea and nausea. Genitourinary: Positive for pelvic pain and vaginal pain. Negative for decreased urine volume, dysuria and vaginal discharge. Musculoskeletal: Negative for arthralgias, back pain, myalgias and neck pain. Skin: Negative. Negative for rash and wound. Neurological: Negative for weakness, light-headedness and headaches. Psychiatric/Behavioral: Negative for behavioral problems, confusion, decreased concentration and suicidal ideas. Current Medications[1] Allergies[2] OBJECTIVE: Visit Vitals BP 132/82 (BP Location: Left arm, Patient Position: Sitting, BP Cuff Size: Adult) Pulse 91 Temp 98.3 ??F (36.8 ??C) (Oral) Resp 22 Ht 5' (1.524 m) Wt 121 lb 12.8 oz (55.2 kg) SpO2 97% BMI 23.79 kg/m?? Smoking Status Never BSA 1.53 m?? Physical Exam Vitals reviewed. Exam conducted with a basket weaver present (Gieska, RMA). Constitutional: General: She is not in acute distress. Appearance: Normal appearance. She is not ill-appearing. HENT: Head: Normocephalic and atraumatic. Right Ear: External ear normal. Left Ear: External ear normal. Nose: Nose normal. Eyes: General: No scleral icterus. Extraocular Movements: Extraocular movements intact. Pulmonary: Effort: Pulmonary effort is normal. No respiratory distress. Abdominal: General: Bowel sounds are normal. Tenderness: There is abdominal tenderness in the left lower quadrant. There is no right CVA tenderness or left CVA tenderness. Negative signs include Bhardwaj's sign, McBurney's sign and obturator sign. Comments: Mild distention of lower abdomen Genitourinary: Comments: Bimanual exam not performed; pt is unable to tolerate vaginal swab Musculoskeletal: General: Normal range of motion. Cervical back: Normal range of motion. Neurological: General: No focal deficit present. Mental Status: She is alert and oriented to person, place, and time. Gait: Gait normal. Psychiatric: Mood and Affect: Mood normal. Behavior: Behavior normal. ASSESSMENT/PLAN: Lower abdominal and pelvic discomfort with possible recurrence of vaginal infection: - Lower abdominal and pelvic discomfort with suspicion for recurrence of prior vaginal infection. - Collected vaginal swab for testing to confirm or rule out infection. Will prescribe metronidazolegel if infection is confirmed. - Advised to report any new symptoms such as nausea, vomiting, fever, or chills. - Will call with results. Possible diverticulitis: - Possible diverticulitis considered due to lower abdominal discomfort, though less likely given absence of nausea or vomiting. - Ordered blood work and imaging to evaluate for diverticulitis or other causes of symptoms. -Will follow up based on results. -Emergency precautions reviewed Assessment & Plan Lower abdominal pain Orders: CBC auto differential; Future Basic Metabolic Panel; Future CT Abdomen Pelvis w/ Contrast; Future Vaginal pain Orders: Bacterial Vaginosis Panel CT Abdomen Pelvis w/ Contrast; Future Future Appointments Date Time Provider Department Center 11/09/2025 11:30 AM Aidee Mackay NP MEDICINE [facility] This note was drafted using Ambient (AI) technology. The patient/patient's guardian has been informed and has consented to the use of this technology: Yes Patient is bilingual and denies need for Tajik interpretation. [1] Current Outpatient Medications: amLODIPine (Norvasc) 5 MG [...] EVERY DAY, Disp: 30 tablet, Rfl: 2 omeprazole (PriLOSEC) [address] [...] and swelling)., Disp: 30 g, Rfl: 0 [2] Allergies Allergen Reactions Tramadol Other documented in this encounter Plan of Treatment Upcoming Encounters Date Type Department Care Team (Late st Contact Info) Description 11/09/2025 11:30 AM EST Office Visit [facility] [address] [place] [address] Aidee Mackay NP [address], [place] [phone] Scheduled Orders Name Type Priority Associated Diagnoses Orde r Schedule CBC auto differential Lab Routine Lower abdominal pain Expected: 08/12/2025 (Approximate), Expires: 08/12/2026 Basic Metabolic Panel Lab Routine Lower abdominal pain Expected: 08/12/2025 (Approximate), Expires: 08/12/2026 CT Abdomen Pelvis w/ Contrast Imaging STAT Lower abdominal pain Vaginal pain Expected: 08/12/2025, Expires: 08/12/2026 documented as of this encounter Procedures Procedure Name Priority Date/Time Associated Diagnosis Comments BACTERIAL VAGINOSIS PANEL Routine 08/12/2025 12:12 PM EST Vaginal pain documented in this encounter Results * (ABNORMAL) Bacterial Vaginosis Panel (08/12/2025 12:12 PM EST) TRICHOMONAS VAGINALIS DETECTION BY PCR NOT DETECTED Not Detect [facility] BACTERIAL VAGINOSIS DETECTION BY PCR POSITIVE(A) Negative [facility] Comment:The BV organism targ ets of the Xpert Xpress MVP test can becommensal in women; Xpert Xpress MVP positive results forbacterial vaginosis should be considered in conjunction withother clinical and patient information to determine thedisease status. Organisms that are not detected by the XpertXpress MVP test have also been reported to be associatedwith BV and aerobic vaginitis.The Xpert Xpress MVP test performance has not been evaluatedin patients under the age of 14. KAYLEY GROUP DETECTION BY PCR NOT DETECTED Not Detect [facility] Kayley glab krusei PCR NOT DETECTED Not Detect [facility] Swab Vaginal structure / Unknown 08/12/2025 12:12 PM EST 08/12/2025 4:37 PM EST Elizabeth Mariscal NP LAB MICROBIOLOGY - GENERAL FAIZAN MILLER Final Result [facility] [address] [place] [phone] documented in this encounter Visit Diagnoses Diagnosis Lower abdominal pain- Primary Abdominal pain, other specified site Vaginal pain Unspecified symptom associated with female genital organs documented in this encounter Additional Health Concerns Assessment Noted Time PHQ-9 Depression Total Score: 8 06/05/20 25 11:51 AM EDT documented as of this encounter Care Teams Assembly Line Supervisor Relationship Specialty Start Date End Date Aidee Mackay NP [address] [place] [phone] PCP - General Family Medicine 04/21/24 documented as of this encounter
--- OUTSIDE RECORDS SUMMARY | 2025-08-14 10:31 | XMS_ITS | Clinical Summary ---
Author Organization [facility] Address [address] [place] [phone] Phone Care Team Providers Care Transformation Consultant Name Role Phone Physician, Pcp Unknown Primary [...] patient's age to complete this topic Insurance [facility] MEDICARE Member Subscriber Plan / Payer (Ef fective 2024-Present) Name:Mendy Ghotra Relation to Subscriber:Self Name:Mendy Ghotra Payer ID:[id number] Group ID:[id number] Type:Not on file Address: [address] [place] [phone] MED[place] - [place] Care Teams Transformation Consultant Relationship Specialty Start Date End Date Physician, Pcp Unknown PCP - General 04/22/25
--- OUTSIDE RECORDS SUMMARY | 2025-08-14 10:31 | XMS_ITS | Encounter Summary ---
Author Organization [employer] Address [address] [facility] [address] [place] [address] Care Team Providers Care Maintenance And Custodian Supervisor Name Role Phone Aidee Mackay NP Primary Care Provider Reason for Visit * Reason Onset Date Comments Nurse Triage 08/11/2025 Encounter Details Date Type Department Care Team ([facility] Contact Info) Description 08/11/[address] [facility] [address], [place] [phone] Aidee Mackay NP [address] [place] [address] Nurse Triage Social History Tobacco Use Types Packs/Day Years [...] encounter Miscellaneous Notes * Telephone Encounter - Jessica Peralta RN - 08/11/2025 4:33 PM EST TC to pt to triage for vaginal symptoms. pt states that she was treated back in May for BV and was given treatment. pt states that she is having the same symptoms again including general discomfort and pain with urination. nurse advised pt that we will need to see her in office to rerun testsand reevaluate as it may be something different. pt agrees to appt on 08/12/25 at 11:15 am with Elizabeth. Protocol Used: Vaginal Symptoms (Adult) Protocol-Based Disposition: See in Office or Video Visit within 3 Days Positive Triage Questions: * Symptoms of a yeast infection (i.e., itchy, white discharge, not bad smelling) and not improved > 3 days following Care Advice * Patient wants to be seen * All other vaginal symptoms (Exceptions: Feels like prior yeast infection, minor abrasion, mild rash < 24 hour duration, mild itching, vaginal dryness during sex.) * Symptoms of a yeast infection (i.e., itchy, white discharge, not bad smelling) and feels like prior vaginal yeast infections * All higher-acuity triage questions were negative. Care Advice Discussed: * Reasons To Call Back - Fever or abdomen pain occur - You become worse * Telephone Encounter - Jessica Peralta RN - 08/11/2025 3:10 PM EST TC x1 to pt to triage for vaginal symptoms. No answer, LVM to return call to office and ask for triage nurses. * Telephone Encounter - Lalo Clemens - 08/11/2025 2:08 PM EST Symptom: Vaginal Symptoms - Not Bleeding Outcome: Schedule an urgent appointment (within 1 hour) or talk to a nurse or provider soon Reason: Any pelvic pain The caller accepted this outcome. Contact pt at [phone] documented in this encounter Plan of Treatment Upcoming Encounters Date Type Department Care Team (Late st Contact Info) Description 11/09/2025 11:30 AM EST Office Visit [facility] [address] [place] [address] Aidee Mackay NP [address] [place] [address] documented as of this encounter Visit Diagnoses Not on filedocumented in this encounter Additional Health Concerns Assessment Noted Time PHQ-9 Depression Total Score: 8 06/05/20 25 11:51 AM EDT documented as of this encounter Care Teams Maintenance And Custodian Supervisor Relationship Specialty Start Date End Date Aidee Mackay NP [address] [place] [address] PCP - General Family Medicine 04/21/24 documented as of this encounter
--- OUTSIDE RECORDS SUMMARY | 2025-08-14 10:31 | XMS_ITS | Encounter Summary ---
Author Organization [employer] Address [address] [facility] 7t [place] [address] Care Team Providers Care Candy Butcher Name Role Phone Aidee Mackay NP Primary Care Provider [phone] Encounter Details Date Type Department Care Team ([facility] st Contact Info) Description 08/13/2025 Results Follow-Up [facility] MED[facility] [address] [place] [address] Elizabeth Mariscal NP [address] [place] [address] Bacterial Vaginosis Panel Social History Tobacco Use Types Packs/Day Years [...] Description 11/09/2025 11:30 AM EST Office Visit [facility] MED[facility] [address] [place] [address] Aidee Mackay NP [address] [place] [address] documented as of this encounter Visit Diagnoses Not on filedocumented in this encounter Additional Health Concerns Assessment Noted Time PHQ-9 Depression Total Score: 8 06/05/20 25 11:51 AM EDT documented as of this encounter Care Teams Candy Butcher Relationship Specialty Start Date End Date Aidee Mackay NP [address] [place] [address] PCP - General Family Medicine 04/21/24 documented as of this encounter
--- OUTSIDE RECORDS SUMMARY | 2025-08-14 10:31 | XMS_ITS | Encounter Summary ---
Author Organization [employer] Address 75 [facility] 7t [place] [address] Care Team Providers Care It Systems Analyst Consultant Name Role Phone Codie Aidee BALBUENA Primary Care Provider [phone] Encounter Details Date Type Department Care Team (Latest Contact Info) Description 08/12/2025 Travel Social History Tobacco Use Types Packs/Day [...] Description 11/09/2025 11:30 AM EST Office Visit [facility] [address] [place] [address] Aidee Mackay NP [address] [place] [address] documented as of this encounter Visit Diagnoses Not on filedocumented in this encounter Additional Health Concerns Assessment Noted Time PHQ-9 Depression Total Score: 8 06/05/20 25 11:51 AM EDT documented as of this encounter Care Teams It Systems Analyst Consultant Relationship Specialty Start Date End Date Aidee Mackay NP [address] [place] [address] PCP - General Family Medicine 04/21/24 documented as of this encounter
--- OUTSIDE RECORDS SUMMARY | 2025-08-14 10:31 | XMS_ITS | Encounter Summary ---
Author Organization [employer] Address 75 [facility] 7t [place] [address] Care Team Providers Care Rubber Goods Tester Name Role Phone Aidee Mackay NP Primary Care Provider [phone] Reason for Referral * Consultation (Urgent) - Closed Specialty Diagnoses / Procedures Referred By Contfahad t Referred To Contact Optometry Diagnoses Photophobia of both eyes Aidee Mackay NP [address] [place] [address] Phone: tel: fax: [facility] OPTOMETRY [address] [place] [address] Phone: tel: fax: Referral ID Status Reason Start Date Expiration Date V isits Requested Visits Authorized [id number] Closed Consult and Treat 08/22/2024 08/22/2025 1 1 Encounter Details Date Type Department Care Team (Late st Contact Info) Description 08/22/2024 Orders Only [facility] MEDICINE [address] [place] [address] Aidee Mackay NP [address] [place] [address] Age related osteoporosis, unspecified pathological fracture presence [...] Description 11/09/2025 11:30 AM EST Office Visit [facility] MED[facility]INE [address] [place] [address] Aidee Mackay NP [address] [place] [address] Scheduled Referrals Name Type Priority Associated Diagnoses Orde r Schedule Referral to [facility] Eye Care Outpatient Referral Urgent [...] EST) Sodium 137 135 - 145 mmol/L [facility] Potassium 4.2 3.3 - 5.1 mmol/L [facility] Chloride 105 96 - 108 mmol/L [facility] Carbon Dioxide 25 22 - 29 mmol/L [facility] Anion Gap 11(L) 12 - 20 [facility] Urea Nitrogen (BUN) 17(H) 9 - 16 mg/dL [facility] Creatinine, Serum 0.97 0.5 - 1.4 mg/dL [facility] Estimated Glomerular Filt Rate 56 [facility] Comment:Chronic Kidney Disea se: Estimated GFR < 60 mL/min/1.14g1Wedbnj Kidney Disease: Estimated GFR < 15 mL/min/1.73m2 Glucose 137(H) 60 - 115 mg/dL [facility] Calcium 9.0 8.4 - 10.2 mg/dL [facility] Bilirubin, Total 0.6 0.0 - 1.0 mg/dL [facility] Aspartate Amino Transferase 25 5 - 31 U/L [facility] Alanine Aminotransferase 26 0 - 31 U/L [facility] Total Protein 7.7 6.5 - 8.0 g/dL [facility] Albumin Level 4.3 3.5 - 5.0 g/dL [facility] Alkaline Phosphatase 79 39 - 117 U/L [facility] Blood Venous blood specimen / Unknown 09/01/2024 2:31 PM EST 09/01/2024 4:22 PM EST us Aidee Mackay NP LAB BLOOD ORDERABLES Final Resul t [facility] [address] [place] [address] [phone] * TSH W/Reflex to FT4 (09/01/2024 2:31 PM EST) TSH reflex Free T4 3.26 0.32 - 4.0 uIU/mL [facility] Blood Venous blood specimen / Unknown 09/01/2024 2:31 PM EST 09/01/2024 4:22 PM EST us Aidee Mackay NP LAB BLOOD ORDERABLES Final Resul t [facility] [address] [place] [address] [phone] documented in this encounter Visit Diagnoses Diagnosis Age related osteoporosis, unspecified pathological fracture presence- Primary Photophobia of both eyes Visual discomfort documented in this encounter Care Teams Rubber Goods Tester Relationship Specialty Start Date End Date Aidee Mackay NP [address] [place] [address] PCP - General Family Medicine 04/21/24 documented as of this encounter
--- OUTSIDE RECORDS SUMMARY | 2025-08-14 10:31 | XMS_ITS | Clinical Summary ---
Author Organization [employer] Address 75 [facility] 7t [place] [address] Care Team Providers Care Deal Architect Name Role Phone Aidee Mackay NP Primary Care Provider [phone] Allergies Active Allergy Reactions Criticality Noted Date Comments Tramadol Other 11/13/2024 Medications sucralfate (Carafate) 1 g tablet Take 1 g by mouth before breakfast, before lunch, before evening meal, and at bedtime. Active rosuvastatin (Crestor) 40 MG tabletIndications :Mixed hyperlipidemia Take 1 tablet (40 mg) by mouth Once per day. 30 tablet 2 024 Active triamcinolone (Kenalog) 0.1 % cream Apply topically if needed in the morning and at bedtime (pain and swelling). 30 g 024 Active cholecalciferol (Vitamin D-3) 25 MCG (1000 UT) capsule Take 1 capsule (25 mcg) by mouth Once per day. 90 capsule 3 024 2024 Active Eye Itch Relief 0.035 % solutionIndicatio ns:Allergic conjunctivitis of both eyes INSTILL 1 DROP INTO THE AFFECTED EYE(S) TWICE DAILY 10 mL 1 025 Active omeprazole (PriLOSEC) [address] capsuleIndication s:Bloating TAKE 1 CAPSULE BY MOUTH EVERY DAY BEFORE BREAKFAST DO NOT BREAK, CRUSH, DISSOLVE OR CHEW 30 capsule 2 025 Active fluticasone (Flonase) 50 MCG/ACT nasal sprayIndications: Atopic dermatitis, unspecified type INSTILL 1 SPRAY IN EACH NOSTRIL ONCE DAILY 16 g 2 025 Active losartan (Cozaar) 50 MG tabletIndications :Hypertension, unspecified type TAKE 1 TABLET BY MOUTH EVERY DAY 30 tablet 2 Active amLODIPine (Norvasc) 5 MG tablet Take 1 tablet (5 mg) by mouth Once per day. 90 tablet 3 025 2025 Active metroNIDAZOLE (Metrogel) 0.75 % vaginal gel INSERT ONE APPLICATORFUL VAGINALLY AT BEDTIME FOR 7 DAYS. 70 g Active metroNIDAZOLE (Metrogel) 0.75 % vaginal gel Insert into the vagina at bedtime for 7 days. 70 g 025 2024 Discontinued Active Problems Problem Noted Date [...] & Plan (12/11/2024 2:37 PM EDT): Primary vp care management of mother Constipation 11/07/2024 Atopic dermatitis 09/01/2024 [...] Encounters Date Type Department Care Team Description 08/13/2025 Results Follow-Up [address] [address] Elizabeth Mariscal NP Bacterial Vaginosis Panel 08/12/2025 11:15 AM EST Office Visit [address] [address] Elizabeth Mariscal NP Lower abdominal pain (Primary Dx); Vaginal pain 08/12/2025 Travel 08/11/2025 Telephone [facility] MEDICINE [address] [place] [address] Aidee Mackay NP Nurse Triage 08/11/[address] [address] Aidee Mackay NP 07/01/2025 Orders Only [address] [address] Aidee Mackay NP 06/08/2025 Results Follow-Up [address] [address] Aidee Mackay NP Culture, Urine, Routine, Bacterial Vaginosis Panel 06/05/2025 11:30 AM EDT Office Visit [facility] [address] [place] [address] Aidee Mackay NP Hypertension, unspecified type (Primary Dx); Dysuria; Psychogenic fecal incontinence; Pelvic pain 06/05/2025 Travel 06/03/2025 Refill [facility] [place] [address] Aidee Mackay NP Hypertension, unspecified type 05/29/2025 Telephone [facility] [address] [place] [address] Aidee Mackay NP Chart Prep 05/26/2025 Telephone [facility] [address] [place] [address] Aidee Mackay NP 05/22/2025 Refill [facility] [address] [place], [place] [phone] Aidee Mackay NP from Last 3 Months Family History Medical [...] Mass Index 23.79 08/12/2025 11:48 AM EST Plan of Treatment Upcoming Encounters Date Type Department Care Team (Late st Contact Info) Description 11/09/2025 11:30 AM EST Office Visit [facility] [address] [place] [address] Aidee Mackay NP [address] [place] [address] Health Maintenance Due Date Last Done Comments CT Colonography 1950 Colonoscopy 1950 Colorectal Cancer Screening 1950 FIT DNA/Cologuard 1950 FIT 1950 FOBT 1950 Sigmoidoscopy 1950 Hepatitis C Screening 1970 DTaP/Tdap/Td Vaccines (1 - Tdap) 1971 Pneumococcal Vaccine: 50+ Years (1 of 2 - PCV) 1971 RSV Patients and Patients Aged 60 years or older (1 - Risk 50-74 years 1-dose series) 2002 Zoster Vaccines (1 of 2) 2002 COVID-19 Vaccine (1 - 2024-2 6 season) 2025 Influenza Vaccine (#1) 2025 Alcohol/Substance Use Screening 09/01/2025 09/01/2024 Depression Screening 06/05/2026 06/05/2025, 06/05/2025 SDOH Screening 06/05/2026 06/05/2025 Tobacco Screening 08/12/2026 08/12/2025 Mammogram 08/13/2026 08/13/2024 Lipid Panel 05/17/2029 05/17/2024 [...] Routine 08/12/2025 12:12 PM EST Vaginal pain BACTERIAL VAGINOSIS PANEL Routine 06/05/2025 12:00 AM EDT Pelvic pain CULTURE, URINE, ROUTINE Routine 06/05/2025 12:00 AM EDT Dysuria BI MAMMOGRAM SCREENING TOMOSYNTHESIS BILATERAL Routine 08/13/2024 11:25 AM EST Encounter for screening mammogram for malignant neoplasm of breast LIPID PANEL, STANDARD Routine 05/17/2024 9:43 AM EDT Mixed hyperlipidemia from Last 3 Months or Most Recently Relevant to Health Maintenance Results * (ABNORMAL) Bacterial Vaginosis Panel (08/12/2025 12:12 PM EST) Only the most recent of2 resultswithin the time period is included. TRICHOMONAS VAGINALIS DETECTION BY PCR NOT DETECTED Not Detect [facility] BACTERIAL VAGINOSIS DETECTION BY PCR POSITIVE(A) Negative [facility] Comment:The BV organism targ ets [...] DETECTION BY PCR NOT DETECTED Not Detect [facility] Kayley glab krusei PCR NOT DETECTED Not Detect [facility] Swab Vaginal structure / Unknown 08/12/2025 12:12 PM EST 08/12/2025 4:37 PM EST Elizabeth Mariscal FELT HAT INSPECTOR AND PACKER LAB MICROBIOLOGY - GENERAL FAIZAN MILLER Final Result [facility] [address] [place] [phone] * Culture, Urine, Routine (06/05/2025 12:00 AM EDT) Urine Urine specimen obtained by clean catch procedure / Unknown 06/05/2025 06/05/2025 Comment:UACC Narrative [facility] - 06/07/2025 8:30 AM EDT Urine Culture Report Result Urine Culture < 10,000 cfu/ml Specimen Source: Urine clean catch Aidee Mackay FELT HAT INSPECTOR AND PACKER LAB MICROBIOLOGY - GENERAL ORDER HERNANDO Final Result Performing Organization Address City/[facility]/ZIP Co de Phone Number [facility] [address] [place] [phone] * BI Mammogram Screening Tomosynthesis Bilateral (08/13/2024 11:25 AM EST) Anatomical Region Laterality Modality Breast Bilateral Mammography 08/13/2024 11:2 5 AM EST Narrative 08/22/2024 9:43 AM EST [address] [place] [address] Mammography Report Signed Patient: Mendy Gautam MR#: [id number] : 1950 Acct:[id number] Age/Sex: 74 / F ADM Date: 08/13/24 Loc: HO.MAMMO Attending Dr: Aidee Mackay NP Ordering Physician: Aidee Mackay NP Results: 1Negati ve Date of Service: 08/13/24 Follow Up: 1 Year From Orig ina Mammogram Procedure(s): MM tomosynthesis screening BI Accession Number(s): [id number] cc: Aidee Mackay NP EXAMINATION: MM SCREENING [...] 08/22/24 0940 DD/ 1125 TD/TT: 08/13/24 1140 Supervisor Lamp Shades: Procedure Note Donotuseinterpreter, Image - 08/22/[address] [place] [address] Mammography Report Signed Patient: Mendy GautamMR#: [id number] : 2Acct:[id number] Age/Sex: 74 / FADM Date: 08/13/24 Loc: HO.MAMMO Attending Dr: Aidee Mackay FELT HAT INSPECTOR AND PACKER Ordering Physician: Aidee Mackay NPResults: 1Negati ve Date of Service: 08/13/24Follow Up: 1 Year From Orig inal Mammogram Procedure(s): MM tomosynthesis screening BI Accession Number(s): [id number] cc: Aidee Mackay FELT HAT INSPECTOR AND PACKER EXAMINATION: MM SCREENING DIGITAL BREAST TOMOSYNTHESIS, BILATERAL [...] by: Марина Bradshaw DO 08/22/2024 09:40 AM [facility] Dictated By: Марина Bradshaw DO Signed By: <Electronically signed by Марина Bradshaw DO in OV> 08/22/24 0940 DD/ 1125 TD/TT: 08/13/24 1140 Supervisor Lamp Shades: Aidee Mackay NP IM BI PROCEDURES Edited Result - Final * (ABNORMAL) Lipid Panel, Standard (05/17/2024 9:43 AM EDT) Triglycerides 176(H) <150 mg/dL [facility] Comment:Desirable Triglyceri de: less than 150 mg/dLBorderline High Triglyceride 150-199 mg/dLHigh Triglyceride: 200-499 mg/dLVery High Triglyceride: greater than or equal to 5OO mg/dL Cholesterol 250(H) <200 mg/dL [facility] Comment:Desirable Cholestero l: less than 200 mg/dLBorderline High Cholesterol: 200-239 mg/dLHigh Cholesterol: greater than 239 mg/dL LDL Cholesterol Calculated 159(H) <100 mg/dL [facility] Comment:Desirable LDL: less than 100 mg/dLNear Optimal/Above Optimal LDL: 110- 129 mg/dLBorderline High LDL: 130-159 mg/dLHigh LDL: 160-189 mg/dLVery High LDL: greater than or equal to 190 mg/dL HDL Cholesterol 56 >40 mg/dL [facility] Comment:Desirable HDL: great er than 40 mg/dL Note: This HDL assay may give artificially low results in patients with liver disease. Blood Venous blood specimen / Unknown 05/17/2024 9:43 AM EDT 05/17/2024 9:49 AM EDT us Aidee Mackay FELT HAT INSPECTOR AND PACKER LAB BLOOD ORDERABLES Final Resul t [facility] [address] [place] [address] [phone] from Last 3 Months or Most Recently Relevant to Health Maintenance Insurance [facility] STANDARD [facility] INTERMEDIATE OPTIONS (HMO D-SNP) SUSAN ASHBY [id number] Care Teams Deal Architect Relationship Specialty Start Date End Date Aidee Mackay NP [address] [place] [phone] PCP - General Family Medicine 04/21/24
--- OUTSIDE RECORDS SUMMARY | 2025-08-14 10:31 | XMS_ITS | Encounter Summary ---
Author Organization [employer] Address 75 [facility] 7t [place] [address] Care Team Providers Care Wind Tunnel Technician Name Role Phone Aidee Mackay NP Primary Care Provider [phone] Reason for Visit * Reason Comments Med Refill Encounter Details Date Type Department Care Team ([facility] st Contact Info) Description 08/11/2025 Refill [facility] [address] [place], [place] [phone] Aidee Mackay NP [address] [place] [address] Social History Tobacco Use Types Packs/Day Years [...] 11:30 AM EST Office Visit [facility] [address] [place] [address] Aidee Mackay NP [address] [place] [address] documented as of this encounter Visit Diagnoses Not on filedocumented in this encounter Additional Health Concerns Assessment Noted Time PHQ-9 Depression Total Score: 8 06/05/20 25 11:51 AM EDT documented as of this encounter Care Teams Wind Tunnel Technician Relationship Specialty Start Date End Date Aidee Mackay NP [address] [place] [address] PCP - General Family Medicine 04/21/24 documented as of this encounter
--- OUTSIDE RECORDS SUMMARY | 2025-08-14 10:31 | XMS_ITS | Data Portability ---
Author Organization [employer] [facility] Address [address] [place] [address] Care Team Providers Care Fiberglass Insulation Installer Name Role Phone HIM CCA OTHER Assessment Encounter Date Assessment Date Assessment LastModified by Organization Details LastModified Time 09/16/2024 09/16/2024 I provided real -time medical direction via phone for this encounter and was available for additional phone-based assistance as needed. I have reviewed and agree with the Assessment and Plan as documented by the Rubber Calender Helper. Patient given the opportunity to ask questions. Our service contacted for an assessment of: Viral URI symptoms As per above, patient with approximately several days of viral URI symptoms. Denies fever or chills. Has run out of albuterol nebulizers and would like a refill. Denies chest pain, shortness of breath, dyspnea on exertion. Positive nasal congestion and dry cough. Positive sick contacts. Per network systems operator on the scene, vital signs are stable and patient is afebrile. Minimal wheezing heard on exam. Albuterol neb given x1 with good effect. No increased work of breathing and no distress. Impression: Common cold and viral URI Plan: Albuterol neb x1 given. Refill for albuterol nebs at patient uses several times a day. Continue with [id number] medications to control symptoms. Red flags discussed [...] None recorded. Lab rapid flu (A+B) [address], [phone] 4 22:43:12 rapid SARS CoV 2 Ag, QL IA, respiratory specimen [address], [phone] 22:43:12 Referral None recorded. Procedures None recorded. Surgeries None recorded. Imaging None recorded. Medication Orders albuterol sulfate 2.5 mg/3 mL (0.083 %) solution for nebulizatio n [address] [facility] [address] [facility], [address] [place] [address], [phone], 22:43:12 albuterol sulfate 2.5 mg/3 mL (0.083 %) solution for nebulizatio n 2023 [id number], [address] [place], [address], 22:43:14 Patient TargetsNo targets recorded. Patient InstructionsNo instructions recorded. Reason for Referral None Reported. Results Created Date Observation Date Name Description Value Unit Range Abnormal Flag Note LastModifiedBy Organization Detail LastModifiedTime 09/16/2009/16/2024 rapid SARS CoV 2 Ag, QL IA, respi rator y speci men rapid SARS CoV 2 Ag, QL IA, respiratory specimen negati ve Not Available [facility] ed [address] [place] [address], [phone] 09/16/2024 22:42:02 09/16/2009/16/2024 rapid flu (A+B) Flu negati ve Not Available [facility] ed [address] [place] [address], [phone] 09/16/2024 22:42:01 Result Notes None recorded. Medical Equipment None Reported. Allergies Allergen ID Allergen Name Allergen Category Reaction Reaction Severity Criticality Documentation Date Start Date Code Code System Note Provider Name and Address Organization Details Recorded Time 02661 Ultram medicatio n Not available Not available Not available 09/16/2024 13933 6 RxNorm Not Available [facility] - production [...] ICD10 Code Diagnosis IMO Codes Diagnosis Note 20329 Fern Harrison MD Main - [facility] [address] [place] [phone] 09/16/2024 16:37:12 09/17/2024 22:04:05 Common cold [id number] J00 Health Concerns Section Related Observation LastModified by Organization Detai ls LastModified Time None Recorded Concern Status LastModified by Organization Details LastModified Time None Recorded Advance Directives Directive None Recorded Payers Insurance Date Sequence Insurance Name Policy Number Policy Dumont Covered Member ID Dumont Member ID Guarantor Name 09/17/2024 1 [facility] - DOS ON OR AFTER 2022 - DUAL ELIGIBLE - FDC OPTIONS AND ONE CARE (MEDICARE REPLACEMENT/ADV ANTAGE - HMO) Mendy Alex [id number] Mendy Alex Notes Date Note Type Note [...] cold symptoms, Nausea PMH: Hypertension, Asthma Comments: Coverstitch Elastic Attacher verified the patient's name//address and phone number. [...] emergency treatment if needed -Gaudencio Means RN Rubber Calender Helper Organization Information for [employer] Legal Name: [employer]. Address: [address] [place] [address], Wood Getter: Harsha Prater MD CLIA No.: [id number] Rubber Calender Helper POC Test Results from [facility] Rapid influenza antigen (16:36:30) Flu: - Rapid COVID antigen (16:36:31) COVID: - .................. .................. .................. .................. .................. .................. .................. ............... Rubber Calender Helper Note From [facility]: Dispatched to the [...] .................. .................. .................. .................. .................. .................. ............... [facility] Consulted: Fern Harrison .................. .................. .................. .................. .................. .................. .................. ............... Disposition: Fulfilled Fern Harrison MD [address] [place] [address],[facility] [facility], [place], [phone], [employer] 09/16/2024 22:43:50 OBGyn Episode No OBEpisode recorded.
[2025-08-14 10:42] LABS: MANUAL DIFF FLAG NO
[2025-08-14 11:17] LABS: Hematocrit 43.8 % (37.0-47.0); Hemoglobin 14.4 g/dl (12.0-16.0); Imm Gran Abs Auto 0.01 X10*3/uL (0.00-0.03); Imm Gran Pct Auto 0.2 % (0.0-0.4); Lymphocytes Absolute Auto 1.1 X10*3/uL (1.2-4.9); Mean Corpuscular HGB Conc 32.9 g/dl (31.0-35.0); Mean Corpuscular Hemoglobin 30.0 pg (27.0-33.0); Mean Corpuscular Volume 91.3 fL (80.0-98.0); NRBC Abs Auto 0.000 X10*3/uL (0.0-0.012); NRBC Pct Auto 0.0 /100WBC (0.0-0.2); Platelet Count 281 X10*3/uL (160-400); Red Blood Count 4.80 X10*6/uL (4.20-5.50); White Blood Count 5.3 X10*3/uL (4.8-10.8)
[2025-08-14 11:35] LABS: Anion Gap 15 (12-20); Blood Urea Nitrogen 18 mg/dL (9-16); Calcium 10.0 mg/dL (8.4-10.2); Carbon Dioxide 27 mmol/L (22-29); Chloride 106 mmol/L (96-108); Estimated Glomerular Filt Rate 56; Potassium 5.1 mmol/L (3.3-5.1); Sodium 143 mmol/L (135-145)
== END 2025-08-14 10:29 | disposition home or self-care (01) ==
LOC: HO.LAB 10:28
PROVIDERS: Visit Provider Nurse Practitioner
DX: R10.30 Lower abdominal pain, unspecified (principal)
CPT/HCPCS: 36415; 80048; 85025

== ENCOUNTER 2025-09-15 08:32 | Outpatient (REF) | payer OTHER, SELFPAY ==
--- NOTE | ~2025-09-15 | CT_ITS ---
EXAMINATION: CT ABDOMEN PELVIS WITH IV CONTRAST HISTORY: vaginal/LLQ pain. r/o diverticulitis COMPARISON: There are no prior studies for available comparison. TECHNIQUE: CT scan of the abdomen and pelvis was performed following administration of 85 mL Omnipaque 350 using standard departmental protocol. Coronal and sagittal reformatted images were generated and reviewed. The patient received oral contrast material. This CT exam was performed with one or more of the following dose reduction techniques: automated exposure control, adjustment of the mA and/or kV according to patient size, use of iterative reconstruction technique. DLP: 235 mGy-cm FINDINGS: LOWER CHEST: The visualized lung bases are clear. There is no pleural effusion. CARDIOVASCULATURE: The heart is normal in size. There is no pericardial effusion. LIVER: The liver is normal in size and contour. No liver mass is identified. The hepatic and portal veins are patent. GALLBLADDER / BILE DUCTS: The gallbladder is unremarkable. There is no intra or extrahepatic biliary ductal dilatation. SPLEEN: The spleen is normal in size. No focal splenic lesion is identified. PANCREAS: The pancreas is unremarkable in appearance. ADRENAL GLANDS: Within normal limits. KIDNEYS/RETROPERITONEUM: No renal calculi are identified. There is no hydronephrosis. No renal masses are identified. LYMPH NODES: No abdominal or pelvic lymphadenopathy. VASCULATURE: The abdominal aorta demonstrates atherosclerotic calcification, but is normal in caliber. MESENTERY/PERITONEUM: No free fluid. No masses. There is no free intraperitoneal gas. STOMACH: There is a small hiatal hernia. The remainder of the stomach is unremarkable. SMALL BOWEL: The small bowel is normal in caliber. COLON: The colon is unremarkable. APPENDIX: Normal. URINARY BLADDER/PELVIC ORGANS: The urinary bladder is collapsed, limiting evaluation. The uterus is unremarkable. BONES / SOFT TISSUES: No suspicious bony or soft tissue abnormalities. CT/CT abdomen pelvis w IV con IMPRESSION: Small hiatal hernia. Otherwise unremarkable contrast-enhanced CT of the abdomen and pelvis. No CT evidence of diverticulitis. Electronically signed by: Delio Chaney MD 09/15/2025 11:10 AM [facility]
--- OUTSIDE RECORDS SUMMARY | 2025-09-15 10:12 | XMS_ITS | Clinical Summary ---
Author Organization [employer] Address [address] [facility] 7t [place] [address] Care Team Providers Care Geodetic Engineer Name Role Phone Aidee Mackay NP Primary Care Provider [phone] Allergies Active Allergy Reactions Criticality Noted Date Comments Tramadol Other 11/13/2024 Medications sucralfate (Carafate) 1 g tablet Take 1 g by mouth before breakfast, before lunch, before evening meal, and at bedtime. Active rosuvastatin (Crestor) 40 MG tabletIndications: Mixed hyperlipidemia Take 1 tablet (40 mg) by mouth Once per day. 30 tablet 2 04/21/20 24 Active triamcinolone (Kenalog) 0.1 % cream Apply topically if needed in the morning and at bedtime (pain and swelling). 30 g 05/26/20 24 Active Eye Itch Relief 0.035 % solutionIndication s:Allergic conjunctivitis of both eyes INSTILL 1 DROP INTO THE AFFECTED EYE(S) TWICE DAILY 10 mL 1 11/26/19 25 Active omeprazole (PriLOSEC) [address] capsuleIndications :Bloating TAKE 1 CAPSULE BY MOUTH EVERY DAY BEFORE BREAKFAST DO NOT BREAK, CRUSH, DISSOLVE OR CHEW 30 capsule 2 5 5:28 PM EST 02/06/20 25 Active fluticasone (Flonase) 50 MCG/ACT nasal sprayIndications:A topic dermatitis, unspecified type INSTILL 1 SPRAY IN EACH NOSTRIL ONCE DAILY 16 g 2 03/06/20 25 Active losartan (Cozaar) 50 MG tabletIndications: Hypertension, unspecified type TAKE 1 TABLET BY MOUTH EVERY DAY 30 tablet 2 5 5:28 PM EST 06/04/20 25 Active amLODIPine (Norvasc) 5 MG tablet Take 1 tablet (5 mg) by mouth Once per day. 90 tablet 3 06/05/20 25 026 Active metroNIDAZOLE (Metrogel) 0.75 % vaginal gel INSERT ONE APPLICATORFUL VAGINALLY AT BEDTIME FOR 7 DAYS. 70 g 5:44 PM EST 08/12/20 25 Active cholecalciferol (Vitamin D-3) 25 MCG (1000 UT) capsule Take 1 capsule (25 mcg) by mouth Once per day. 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 care manager of mother Constipation 11/07/2024 Atopic dermatitis 09/01/2024 [...] Encounters Date Type Department Care Team Description 09/14/[address] [address] Aidee Mackay NP Lab Orders 08/21/2025 Telephone [facility] [address] [place] [address] Elizabeth Mariscal NP 08/13/2025 Results Follow-Up [address] [address] Elizabeth Mariscal NP Bacterial Vaginosis Panel, CBC auto differential, Basic Metabolic Panel 08/12/2025 11:15 AM EST Office Visit [address] [address] Elizabeth Mariscal NP Lower abdominal pain (Primary Dx); Vaginal pain 08/12/2025 Travel 08/11/[address] [address] Aidee Mackay NP Nurse Triage 08/11/[address] [address] Aidee Mackay NP 07/01/2025 Orders Only [address] [address] Aidee Mackay NP from Last 3 Months [...] Description 11/09/2025 11:30 AM EST Office Visit [facility] [address] [place] [address] Aidee Mackay NP [address] [place], [place] [phone] Health Maintenance Due Date Last Done Comments CT Colonography 1950 Colonoscopy 1950 Colorectal Cancer Screening 1950 FIT DNA/Cologuard 1950 FIT 1950 FOBT 1950 Sigmoidoscopy 1950 Alcohol/Substance Use Screening 1964 Hepatitis C Screening 1970 DTaP/Tdap/Td Vaccines (1 - Tdap) 1971 Pneumococcal Vaccine: 50+ Years (1 of 2 - PCV) 1971 RSV Patients and Patients Aged 60 years or older (1 - Risk 50-74 years 1-dose series) 2002 Zoster Vaccines (1 of 2) 2002 COVID-19 Vaccine ( - 2024-2 6 season) 2025 Influenza Vaccine (#1) 2025 Depression Screening 06/05/2026 06/05/2025, 06/05/2025 SDOH Screening [...] Procedure Name Priority Date/Time Associated Diagnosis Comments BASIC METABOLIC PANEL Routine 08/14/2025 10:41 AM EST Lower abdominal pain CBC WITH AUTO DIFFERENTIAL Routine 08/14/2025 10:41 AM EST Lower abdominal pain BACTERIAL VAGINOSIS PANEL Routine 08/12/2025 12:12 PM EST Vaginal pain BI MAMMOGRAM SCREENING TOMOSYNTHESIS BILATERAL Routine 08/13/2024 11:25 AM EST Encounter for screening mammogram for malignant neoplasm of breast LIPID PANEL, STANDARD Routine 05/17/2024 9:43 AM EDT Mixed hyperlipidemia from Last 3 Months or Most Recently Relevant to Health Maintenance Results * (ABNORMAL) CBC auto differential (08/14/2025 10:41 AM EST) White Blood Count 5.3 4.8 - 10.8 X10*3/uL [facility] Red Blood Count 4.80 4.20 - 5.50 X10*6/uL [facility] Hemoglobin 14.4 12.0 - 16.0 g/dl [facility] Hematocrit 43.8 37.0 - 47.0 % [facility] Mean Corpuscular Volume 91.3 80.0 - 98.0 fL [facility] Mean Corpuscular Hemoglobin 30.0 27.0 - 33.0 pg [facility] Mean Corpuscular HGB Conc 32.9 31.0 - 35.0 g/dl [facility] Red Cell Distribution Width 12.5 11.0 - 16.0 % [facility] Platelet Count 281 160 - 400 X10*3/uL [facility] Mean Platelet Volume 9.8 9.4 - 12.3 fL [facility] Neutrophils Percent Auto 68.0 45 - 73 % [facility] Imm Gran Pct Auto 0.2 0.0 - 0.4 % [facility] Lymphocytes Percent Auto 20.4 20 - 40 % [facility] Monocytes Percent Auto 8.4 2 - 11 % [facility] Eosinophils Percent Auto 2.4 0 - 4 % [facility] Basophils Percent Auto 0.6 0 - 2 % [facility] NRBC Pct Auto 0.0 0.0 - 0.2 /100WBC [facility] Neutrophils Absolute Auto 3.6 2.0 - 8.3 x10*3/uL [facility] Imm Gran Abs Auto 0.01 0.00 - 0.03 X10*3/uL [facility] Lymphocytes Absolute Auto 1.1(L) 1.2 - 4.9 X10*3/uL [facility] Monocytes Absolute Auto 0.5 0.1 - 1.2 X10*3/uL [facility] Eosinophils Absolute Auto 0.1 0.0 - 0.4 X10*3/uL [facility] Basophils Absolute Auto 0.0 0.0 - 0.2 X10*3/uL [facility] NRBC Abs Auto 0.000 0.0 - 0.012 X10*3/uL [facility] Blood Venous blood specimen / Unknown 08/14/2025 10:41 AM EST 08/14/2025 10:41 AM EST Elizabeth Mariscal FACILITIES OPERATIONS TECHNICIAN LAB BLOOD ORDERABLES Final Resu lt [facility] [address] [place] [address] [phone] * (ABNORMAL) Basic Metabolic Panel (08/14/2025 10:41 AM EST) Sodium 143 135 - 145 mmol/L [facility] Potassium 5.1 3.3 - 5.1 mmol/L [facility] Chloride 106 96 - 108 mmol/L [facility] Carbon Dioxide 27 22 - 29 mmol/L [facility] Anion Gap 15 12 - 20 [facility] Urea Nitrogen (BUN) 18(H) 9 - 16 mg/dL [facility] Creatinine, Serum 0.97 0.5 - 1.4 mg/dL [facility] Estimated Glomerular Filt Rate 56 [facility] Comment:Chronic Kidney Disea se: Estimated GFR < 60 mL/min/1.78n7Pvgmoc Kidney Disease: Estimated GFR < 15 mL/min/1.73m2 Glucose 130(H) 60 - 115 mg/dL [facility] Calcium 10.0 8.4 - 10.2 mg/dL [facility] Blood Venous blood specimen / Unknown 08/14/2025 10:41 AM EST 08/14/2025 10:41 AM EST Elizabeth Mariscal FACILITIES OPERATIONS TECHNICIAN LAB BLOOD ORDERABLES Final Resu lt [facility] [address] [place] [phone] * (ABNORMAL) Bacterial Vaginosis Panel (08/12/2025 12:12 PM EST) TRICHOMONAS VAGINALIS DETECTION BY PCR NOT DETECTED Not Detect [facility] BACTERIAL VAGINOSIS DETECTION BY PCR POSITIVE(A) Negative [facility] Comment:The BV organism targ ets [...] DETECTION BY PCR NOT DETECTED Not Detect [facility] Kayley glab krusei PCR NOT DETECTED Not Detect [facility] Swab Vaginal structure / Unknown 08/12/2025 12:12 PM EST 08/12/2025 4:37 PM EST Elizabeth Mariscal FACILITIES OPERATIONS TECHNICIAN LAB MICROBIOLOGY - GENERAL FAIZAN MILLER Final Result [facility] [address] [place] [address] [phone] * BI Mammogram Screening Tomosynthesis Bilateral (08/13/2024 11:25 AM EST) Anatomical Region Laterality Modality Breast Bilateral Mammography 08/13/2024 11:2 5 AM EST Narrative 08/22/2024 9:43 AM EST [address] [place] [address] Mammography Report Signed Patient: Mendy Gautam MR#: [id number] : 1950 Acct:[id number] Age/Sex: 74 / F ADM Date: 08/13/24 Loc: MAMMO Attending Dr: Aidee Mackay NP Ordering Physician: Aidee Mackay NP Results: 1Negati ve Date of Service: 08/13/24 Follow Up: 1 Year From Orig ina Mammogram Procedure(s): MM tomosynthesis screening BI Accession Number(s): [id number] cc: Aidee Mackay NP EXAMINATION: MM SCREENING [...] Марина Bradshaw DO 08/22/2024 09:40 AM EST RP Dictated By: Марина Bradshaw DO Signed By: <Electronically signed by Марина Bradshaw DO in OV> 08/22/24 0940 DD/ 1125 TD/TT: 08/13/24 1140 Immunology Specialist: Procedure Note Donotuseinterpreter, Image - 08/22/2024 [facility] [address] [place] [address] Mammography Report Signed Patient: Mendy GautamMR#: [id number] : 1950cct:[id number] Age/Sex: 74 / FADM Date: 08/13/24 Loc: HO.MAMMO Attending Dr: Aidee Mackay FACILITIES OPERATIONS TECHNICIAN Ordering Physician: Aidee Mackay NPResults: 1Negati ve Date of Service: 08/13/24Follow Up: 1 Year From Orig inal Mammogram Procedure(s): MM tomosynthesis screening BI Accession Number(s): [id number] cc: Aidee Mackay FACILITIES OPERATIONS TECHNICIAN EXAMINATION: MM SCREENING DIGITAL BREAST TOMOSYNTHESIS, BILATERAL [...] Марина Bradshaw DO 08/22/2024 09:40 AM EST RP Dictated By: Марина Bradshaw DO Signed By: <Electronically signed by Марина Bradshaw DO in OV> 08/22/24 0940 DD/ 1125 TD/TT: 08/13/24 1140 Immunology Specialist: us Aidee Mackay FACILITIES OPERATIONS TECHNICIAN IMG BI PROCEDURES Edited Result - Final * (ABNORMAL) Lipid Panel, Standard (05/17/2024 9:43 AM EDT) Triglycerides 176(H) <150 mg/dL [facility] Comment:Desirable Triglyceri de: less than 150 mg/dLBorderline High Triglyceride 150-199 mg/dLHigh Triglyceride: 200-499 mg/dLVery High Triglyceride: greater than or equal to 5OO mg/dL Cholesterol 250(H) <200 mg/dL [facility] Comment:Desirable Cholestero l: less than 200 mg/dLBorderline High Cholesterol: 200-239 mg/dLHigh Cholesterol: greater than 239 mg/dL LDL Cholesterol Calculated 159(H) <100 mg/dL [facility] Comment:Desirable LDL: less than 100 mg/dLNear Optimal/Above Optimal LDL: 110- 129 mg/dLBorderline High LDL: 130-159 mg/dLHigh LDL: 160-189 mg/dLVery High LDL: greater than or equal to 190 mg/dL HDL Cholesterol 56 >40 mg/dL [facility] Comment:Desirable HDL: great er than 40 mg/dL Note: This HDL assay may give artificially low results in patients with liver disease. Blood Venous blood specimen / Unknown 05/17/2024 9:43 AM EDT 05/17/2024 9:49 AM EDT us Aidee Mackay NP LAB BLOOD ORDERABLES Final Resul t [facility] [address] [place] [address] [phone] from Last 3 Months or Most Recently Relevant to Health Maintenance Insurance [employer] [facility] [employer] (HMO D-SNP) Care Teams Geodetic Engineer Relationship Specialty Start Date End Date Aidee Mackay NP [address] [place] [phone] PCP - General Family Medicine 04/21/24
--- OUTSIDE RECORDS SUMMARY | 2025-09-15 10:12 | XMS_ITS | Encounter Summary ---
Author Organization [employer] Address [address] [facility] 7t [place] [address] Care Team Providers Care Undercover Agent Name Role Phone Aidee Mackay NP Primary Care Provider [phone] Encounter Details Date Type Department Care Team ([facility] st Contact Info) Description 08/22/[address] [facility] [address] [place], [place] [phone] Aidee Mackay NP [address] [place] [address] Age related osteoporosis, unspecified pathological fracture presence [...] Description 11/09/2025 11:30 AM EST Office Visit [facility] [address] [place], [place] [phone] Aidee Mackay NP [address] [place], [place] [phone] documented as of this encounter Procedures Procedure [...] EST) Sodium 137 135 - 145 mmol/L [facility] Potassium 4.2 3.3 - 5.1 mmol/L [facility] Chloride 105 96 - 108 mmol/L [facility] Carbon Dioxide 25 22 - 29 mmol/L [facility] Anion Gap 11(L) 12 - 20 [facility] Urea Nitrogen (BUN) 17(H) 9 - 16 mg/dL [facility] Creatinine, Serum 0.97 0.5 - 1.4 mg/dL [facility] Estimated Glomerular Filt Rate 56 [facility] Comment:Chronic Kidney Disea se: Estimated GFR < 60 mL/min/1.75n3Jxafik Kidney Disease: Estimated GFR < 15 mL/min/1.73m2 Glucose 137(H) 60 - 115 mg/dL [facility] Calcium 9.0 8.4 - 10.2 mg/dL [facility] Bilirubin, Total 0.6 0.0 - 1.0 mg/dL [facility] Aspartate Amino Transferase 25 5 - 31 U/L [facility] Alanine Aminotransferase 26 0 - 31 U/L [facility] Total Protein 7.7 6.5 - 8.0 g/dL [facility] Albumin Level 4.3 3.5 - 5.0 g/dL [facility] Alkaline Phosphatase 79 39 - 117 U/L [facility] Blood Venous blood specimen / Unknown 09/01/2024 2:31 PM EST 09/01/2024 4:22 PM EST us Aidee Mackay KEG VARNISHER LAB BLOOD ORDERABLES Final Resul t Performing Organization Address City/[facility] Co de Phone Number [facility] [address] [place] [phone] * TSH W/Reflex to FT4 (09/01/2024 2:31 PM EST) TSH reflex Free T4 3.26 0.32 - 4.0 uIU/mL [facility] Blood Venous blood specimen / Unknown 09/01/2024 2:31 PM EST 09/01/2024 4:22 PM EST us Aidee Mackay KEG VARNISHER LAB BLOOD ORDERABLES Final Resul t Performing Organization Address City/[facility] Co de Phone Number [facility] [address] [place] [phone] documented in this encounter Visit Diagnoses Diagnosis Age related osteoporosis, unspecified pathological fracture presence- Primary Photophobia of both eyes Visual discomfort documented in this encounter Care Teams Undercover Agent Relationship Specialty Start Date End Date Aidee Mackay NP [address] [place] [phone] PCP - General Family Medicine 04/21/24 documented as of this encounter
--- OUTSIDE RECORDS SUMMARY | 2025-09-15 10:12 | XMS_ITS | Encounter Summary ---
Author Organization [employer] Address [address] [facility] 7t [place] [address] Care Team Providers Care Registered Nurse Maternal Child Name Role Phone Aidee Mackay NP Primary Care Provider [phone] Reason for Visit * Reason Onset Date Comments Lab Orders 09/14/2025 Encounter Details Date Type Department Care Team ([facility] Contact Info) Description 09/14/2025 Telephone [facility] [address] [place], [place] [phone] Aidee Mackay NP [address] [place], [place] [phone] Lab Orders Social History Tobacco Use Types [...] encounter Miscellaneous Notes * Telephone Encounter - Lalo Clemens - 09/14/2025 12:14 PM EST Tc from pt reporting that her apt for the Ct scan was r/s for 09/15 tomorrow morning. Pt is requesting for the blood lab order for BUN GFR and Creat to be faxed to [facility]. Any questions contact pt at [phone] documented in this encounter Plan of Treatment Upcoming Encounters Date Type Department Care Team (Late st Contact Info) Description 11/09/2025 11:30 AM EST Office Visit [facility] [address] [place] [address] Aidee Mackay NP [address] [place] [address] documented as of this encounter Visit Diagnoses Not on filedocumented in this encounter Additional Health Concerns Assessment Noted Time PHQ-9 Depression Total Score: 8 06/05/20 25 11:51 AM EDT documented as of this encounter Care Teams Registered Nurse Maternal Child Relationship Specialty Start Date End Date Aidee Mackay NP [address] [place] [phone] PCP - General Family Medicine 8/5/24 documented as of this encounter
--- OUTSIDE RECORDS SUMMARY | 2025-09-15 10:12 | XMS_ITS | Clinical Summary ---
Author Organization [facility] Address [address] [place] [phone] Phone Care Team Providers Care Captain'S Assistant Name Role Phone Physician, Pcp Unknown Primary [...] patient's age to complete this topic Insurance [facility] MEDICARE Member Subscriber Plan / Payer (Ef fective 2024-Present) Name:Mendy Ghotra Relation to Subscriber:Self Name:Mendy Ghotra Payer ID:[id number] Group ID:[id number] Type:Not on file Address: [address] [place] [id number] MEDICAID - [place] Care Teams Captain'S Assistant Relationship Specialty Start Date End Date Physician, Pcp Unknown PCP - General 04/22/25
[2025-09-15] MEDS: iohexoL 350 MG/ML 100 ML INFUS..BTL IV (10:58)
[2025-09-15] MEDS: Barium Sulfate Oral (Mocha) 450 ML ORAL.SUSP 900 ML PO (10:59)
[2025-09-15 14:55] LABS: Creatinine POC 0.9 mg/dL (0.5-1.4); GFR POC > 60
== END 2025-09-15 08:33 | disposition home or self-care (01) ==
LOC: HO.CT 08:32
PROVIDERS: PCP Nurse Practitioner Family; Visit Provider Nurse Practitioner
DX: R10.32 Left lower quadrant pain (principal); R10.20 Pelvic and perineal pain unspecified side
CPT/HCPCS: 74177; 82565; Q9967

== ENCOUNTER → 2025-09-15 08:38 | Outpatient (BNV) | payer OTHER, SELFPAY | PROVIDERS: PCP Nurse Practitioner Family; Visit Provider Radiology Diagnostic Radiology | DX: R10.32 Left lower quadrant pain (principal); K44.9 Diaphragmatic hernia without obstruction or gangrene | CPT/HCPCS: 74177 ==